=== PATIENT | male | born 1975 | race Two or more races ===

== ENCOUNTER 2018-06-27 00:20 | Inpatient (IN) | payer SELFPAY ==
[~2018-06-27] VITALS: Ht 162.6 cm; Wt 92.1 kg
--- NOTE | 2018-06-27 01:44 | PHYS DOC ---
Past Medical History Past Medical History: No Pertinent History Past Surgical History: No Surgical History Additional Information: 05/01 PPD Alcohol Use: None Drug Use: None Adult General Chief Complaint Chief Complaint: COUGH HPI HPI Patient is a 42 year old male who presents with three day history of cough. Patient states his cough started three days ago after he was outside at a [employer]ist event. In addition, he is having some sharp left sided chest pain that does not radiate as well has having left sided back pain from his hips to his neck. He denies any fevers, but has had chills. He has tried Tylenol and Aleve for pain relief with little help. His back pain and chest pain is worsened with coughing. He denies any lightheadedness or dizziness. Review of Systems Review of Systems Constitutional: Reports chills. Denies fever. Eyes: Denies change in visual acuity, redness, or eye pain [] HENT: Denies nasal congestion or sore throat [] Respiratory: Reports cough or shortness of breath [] Cardiovascular: Reports chest pain. Denies palpitations GI: Denies abdominal pain, nausea, vomiting : Denies dysuria or hematuria [] Musculoskeletal: Reports left sided back pain. Denies joint pain [] Integument: Denies rash or skin lesions [] Neurologic: Denies headache or focal weakness Complete systems were reviewed and found to be within normal limits, except as documented in this note. Current Medications Current Medications Current Medications Medications (Trade) Dose Ordered Sig/Trish Start Time Stop Time Status Last Admin Dose Admin Acetaminophen (Tylenol) 650 mg PRN Q4HRS PRN 06/27/18 03:45 06/28/18 03:44 Dexamethasone Sodium Phosphate (Decadron) 10 mg 1X ONCE 06/27/18 03:00 06/27/18 03:01 DC 06/27/18 02:46 10 MG Ibuprofen (Motrin) 600 mg 1X ONCE 06/27/18 03:00 06/27/18 03:01 DC 06/27/18 02:46 600 MG Info (CONTRAST GIVEN -- Rx MONITORING) 1 each PRN DAILY PRN 06/27/18 02:45 06/29/18 02:44 Iohexol (Omnipaque 350 Mg/ml) 100 ml 1X ONCE 06/27/18 03:00 06/27/18 03:01 DC Ondansetron HCl (Zofran) 4 mg PRN Q8HRS PRN 06/27/18 03:45 06/28/18 03:44 Piperacillin Sod/ Tazobactam Sod 4.5 gm/Sodium Chloride 100 ml @ 200 mls/hr 1X ONCE 06/27/18 04:00 06/27/18 04:29 Sodium Chloride 500 ml @ 500 mls/hr 1X ONCE 06/27/18 04:00 06/27/18 04:59 Vancomycin HCl (Vanco Per Pharmacy) 1 each PRN DAILY PRN 06/27/18 03:45 Vancomycin HCl 1.75 gm/Sodium Chloride 500 ml @ 250 mls/hr 1X ONCE 06/27/18 04:30 06/27/18 06:29 Allergies Allergies Allergies Coded Allergies Type Severity Reaction Last Updated Verified No Known Drug Allergies 06/27/18 No Physical Exam Physical Exam Constitutional: Well developed, well nourished, no acute distress HENT: Normocephalic, atraumatic Eyes: EOMI, no discharge. [] Neck: Normal range of motion, supple, no stridor. [] Cardiovascular:Heart rate regular rhythm, no murmur [] Lungs & Thorax: Bilateral breath sounds clear to auscultation [] Abdomen: Bowel sounds normal, soft, no tenderness Skin: Warm, dry, no erythema Back: Left paraspinal muscle tenderness, no CVA tenderness. [] Extremities: No clubbing, ROM intact, no edema. [] Neurologic: Alert and oriented X 3, no focal deficits noted. [] Psychologic: Affect normal, mood normal. [] Current Patient Data Vital Signs Vital Signs Date Time Temp Pulse Resp B/P (MAP) Pulse Ox O2 Delivery O2 Flow Rate FiO2 06/27/18 00:36 99.6 144 24 127/89 (102) 97 Room Air 99.6 Lab Values Laboratory Tests Test 06/27/18 02:10 06/27/18 02:30 White Blood Count 20.7 x10^3/uL (4.0-11.0) H Red Blood Count 5.16 x10^6/uL (4.30-5.70) Hemoglobin 15.6 g/dL (13.0-17.5) Hematocrit 45.8 % (39.0-53.0) Mean Corpuscular Volume 89 fL (79-100) Mean Corpuscular Hemoglobin 30 pg (25-35) Mean Corpuscular Hemoglobin Concent 34 g/dL (31-37) Red Cell Distribution Width 13.0 % (11.5-14.5) Platelet Count 164 x10^3/uL (140-400) Neutrophils (%) (Auto) 89 % (31-73) H Lymphocytes (%) (Auto) 4 % (24-48) L Monocytes (%) (Auto) 8 % (0-9) Eosinophils (%) (Auto) 0 % (0-3) Basophils (%) (Auto) 0 % (0-3) Neutrophils # (Auto) 18.4 x10^3uL (1.8-7.7) H Lymphocytes # (Auto) 0.7 x10^3/uL (1.0-4.8) L Monocytes # (Auto) 1.6 x10^3/uL (0.0-1.1) H Eosinophils # (Auto) 0.0 x10^3/uL (0.0-0.7) Basophils # (Auto) 0.0 x10^3/uL (0.0-0.2) Platelet Estimate Pending D-Dimer (Leandra) 1.48 ug/mlFEU (0.00-0.50) H Urine Collection Type Unknown Urine Color [place] Urine Clarity Cloudy Urine pH 5.0 Urine Specific [place] 1.025 Urine Protein 30 mg/dL (NEG-TRACE) Urine Glucose (UA) Negative mg/dL (NEG) Urine Ketones (Stick) Trace mg/dL (NEG) Urine Blood Negative (NEG) Urine Nitrite Negative (NEG) Urine Bilirubin Small (NEG) Urine Urobilinogen Dipstick 1.0 mg/dL (0.2 mg/dL) Urine Leukocyte Esterase Trace (NEG) Urine RBC 0 /HPF (0-2) Urine WBC 5-10 /HPF (0-4) Urine Squamous Epithelial Cells Occ /LPF Urine Amorphous Sediment Present /HPF Urine Bacteria 0 /HPF (0-FEW) Urine Hyaline Casts Many /HPF Urine Mucus Mod /LPF Sodium Level 137 mmol/L (136-145) Potassium Level 4.1 mmol/L (3.5-5.1) Chloride Level 102 mmol/L (98-107) Carbon Dioxide Level 21 mmol/L (21-32) Anion Gap 14 (6-14) Blood Urea Nitrogen 36 mg/dL (8-26) H Creatinine 2.8 mg/dL (0.7-1.3) H Estimated GFR (Cockcroft-Gault) 24.7 BUN/Creatinine Ratio 13 (6-20) Glucose Level 132 mg/dL (70-99) H Lactic Acid Level 3.0 mmol/L (0.4-2.0) H Calcium Level 9.2 mg/dL (8.5-10.1) Magnesium Level 1.9 mg/dL (1.8-2.4) Total Bilirubin 0.8 mg/dL (0.2-1.0) Aspartate Amino Transferase (AST) 12 U/L (15-37) L Alanine Aminotransferase (ALT) 25 U/L (16-63) Alkaline Phosphatase 78 U/L (46-116) Creatine Kinase 74 U/L (39-308) Creatine Kinase MB (Mass) 0.5 ng/mL (0.0-3.6) Creatine Kinase MB Relative Index % (0-4) Troponin I Quantitative < 0.017 ng/mL (0.000-0.055) MK-Wxz-S-Type Natriuretic Peptide 1398 pg/mL (0-124) H Total Protein 7.5 g/dL (6.4-8.2) Albumin 3.3 g/dL (3.4-5.0) L Albumin/Globulin Ratio 0.8 (1.0-1.7) L Influenza Type A Antigen Negative (NEGATIVE) Influenza Type B Antigen Negative (NEGATIVE) Laboratory Tests 06/27/18 02:10 Laboratory Tests 06/27/18 02:10 EKG EKG @0304 Sinus tachycardia at 130bpm, NO ST elevation, Q wave in III Radiology/Procedures Radiology/Procedures 2 view CXR (preliminary interpretation by ED physician): Left lower lobe opacity[] Course & Med Decision Making Course & Med Decision Making 42 year old male presents with cough, sob, and chest pain. Upon arrival patients heart rates was 144 bpm. Labs and imaging obtained and posted to the chart. Symptomatic treatment provided with interval improvement. Chest x-ray showed left lower lobe infiltrate. Patient elevated white count and was tachycardic SIRS criteria. This combined with chest x-ray finding patient qualifies for sepsis. Antibiotic and fluids started. Patient requiring admission for further evaluation and treatment. Discussed with Dr. Rosado who is in agreement with admission. Discussed findings and plan with patient and family, who acknowledge understanding and agreement. Dragon Disclaimer Dragon Disclaimer This electronic medical record was generated, in whole or in part, using a voice recognition dictation system. Departure Departure Impression: Primary Impression: Severe sepsis Additional Impressions: Pneumonia Acute renal insufficiency Disposition: ADMITTED INPATIENT Admitting Physician: Curry Watkins Condition: GUARDED Referrals: NO PCP (PCP) Critical Care Time Critical care time was 30 minutes which includes time at bedside, spent in di scussion of patient's care with specialists and/or family members, with interpretation of laboratory and/or radiological studies and is exclusive of procedures. Date and Time of Reassessment Date: Jun 27, 2018 Time: 03:36 Fluid Challenge Is the fluid challenge complet: No Vital Signs Vital Signs: Vital Signs Date Time Temp Pulse Resp B/P (MAP) Pulse Ox O2 Delivery O2 Flow Rate FiO2 06/27/18 00:36 99.6 144 24 127/89 (102) 97 Room Air 99.6 Temperature Source: Oral Respirations Respiratory Effort: Shortness of breath Respiratory Pattern: Normal Cardiovascular Pulse Rhythm: Irregular (tachycardia) Lung Sounds Breath Sounds: Coarse (left base) Capillary Refil Capillary Refill: Rt Hand < 3 seconds Peripheral Pulse Pulse Location: Radial Pulse Strength: Normal (2+) Pulse Assessment Method: NIBP Integumentary Skin: Dry, Other (hot) Skin Moisture: Dry Skin Turgor: Normal Skin Color: warm, dry Problem Qualifiers Additional Impressions: Pneumonia Pneumonia type: due to unspecified organism Laterality: left Lung location: lower lobe of lung Qualified Codes: J18.1 - Lobar pneumonia, unspecified organism ERNESTO OVIEDO DO Jun 27, 2018 01:44
[2018-06-27 02:24] LABS: BASO % 0 % (0-3); EOS % 0 % (0-3); HEMATOCRIT 45.8 % (39.0-53.0); HEMOGLOBIN 15.6 g/dL (13.0-17.5); LYMPH # 0.7 x10^3/uL (1.0-4.8); LYMPH % 4 % (24-48); MEAN CORPUSCULAR HEMOGLOBIN 30 pg (25-35); MEAN CORPUSCULAR HGB CONC 34 g/dL (31-37); MEAN CORPUSCULAR VOLUME 89 fL (79-100); MONO # 1.6 x10^3/uL (0.0-1.1); MONO % 8 % (0-9); NEUT # 18.4 x10^3uL (1.8-7.7); NEUT % 89 % (31-73); PLATELET COUNT 164 x10^3/uL (140-400); RED BLOOD COUNT 5.16 x10^6/uL (4.30-5.70); WHITE BLOOD COUNT 20.7 x10^3/uL (4.0-11.0)
[2018-06-27 02:26] LABS: BILIRUBIN,URINE SMALL (NEG); CLARITY,URINE CLOUDY; COLOR,URINE AMBER; NITRITE,URINE NEGATIVE (NEG); PROTEIN,URINE 30 mg/dL (NEG-TRACE)
[2018-06-27 02:36] LABS: BACTERIA,URINE 0 /HPF (0-FEW); RBC,URINE 0 /HPF (0-2)
[2018-06-27 02:37] LABS: AMORPHOUS SEDIMENT,UR PRESENT /HPF; HYALINE CASTS, URINE MANY /HPF; SQUAMOUS EPITHELIAL CELL,UR OCC /LPF
[2018-06-27 02:40] LABS: CALCIUM 9.2 mg/dL (8.5-10.1); CREATININE 2.8 mg/dL (0.7-1.3); GFR 24.7; POTASSIUM 4.1 mmol/L (3.5-5.1)
[2018-06-27] MEDS ORDERED: CONTRAST GIVEN. MC PRN (02:45)
[2018-06-27 02:46] LABS: ALBUMIN 3.3 g/dL (3.4-5.0); ALBUMIN/GLOBULIN RATIO 0.8 (1.0-1.7); MAGNESIUM 1.9 mg/dL (1.8-2.4); TOTAL BILIRUBIN 0.8 mg/dL (0.2-1.0); TOTAL PROTEIN 7.5 g/dL (6.4-8.2)
[2018-06-27 02:52] LABS: INFLUENZA A PATIENT NEGATIVE (NEGATIVE); INFLUENZA B PATIENT NEGATIVE (NEGATIVE)
[2018-06-27 02:56] LABS: CREATINE KINASE 74 U/L (39-308)
[2018-06-27] MEDS ORDERED: IOHEXOL 350 MG/ML 100 ML VIAL. IV ONE (03:00)
[2018-06-27] MEDS ORDERED: DEXAMETHASONE SOD PHOS 4 MG/ML VIAL IV ONE (03:00)
[2018-06-27] MEDS ORDERED: IBUPROFEN 200 MG TABLET. PO ONE (03:00)
[2018-06-27] MEDS ORDERED: IV NORMAL SALINE 1000ML BAG 1,000 ML IV ONE ×6 (03:00→23:00)
--- NOTE | 2018-06-27 03:41 | RAD ---
CHEST PA LATERAL CLINICAL INDICATION: COUGH COMPARISON: None FINDINGS: Heart is normal in size. Consolidation is seen in the anterior basal segment of the left lower lobe. Right lung is clear. No pneumothorax or large pleural effusion. Visualized bony thorax is within normal limits. IMPRESSION: Left lower lobe pneumonia. Follow-up imaging recommended after medical therapy to ensure resolution. Electronically signed by: Abel Treadwell DO (06/27/2018 3:39 AM) [id number]
[2018-06-27] MEDS ORDERED: ONDANSETRON PF 4 MG/2 ML VIAL. IV PRN (03:45)
[2018-06-27] MEDS ORDERED: VANCOMYCIN PER PHARMACY MC PRN (03:45)
[2018-06-27] MEDS ORDERED: ACETAMINOPHEN 325 MG TABLET. PO PRN (03:45)
[2018-06-27] MEDS ORDERED: PIPERACILLIN/TAZOBACTAM 4.5 GM in IV NORMAL SALINE 100ML 100 ML IV ONE (04:00)
[2018-06-27] MEDS ORDERED: IV NORMAL SALINE 500ML BAG 500 ML IV ONE (04:00)
[2018-06-27] MEDS ORDERED: VANCOMYCIN 1.75 GM in IV NORMAL SALINE 500ML BAG 500 ML IV ONE (04:30)
[2018-06-27 04:36] LABS: % BANDS 35 % (0-9); % LYMPHS 2 % (24-48); % METAS 6 % (0-0); % MONOS 6 % (0-10); % MYELOS 1 % (0-0); % SEGS 50 % (35-66)
[2018-06-27 04:37] LABS: PLT ESTIMATE ADEQUATE (ADEQUATE); TOXIC GRANULATION SLIGHT
[2018-06-27 04:48] VITALS: BP 127/76
--- NOTE | 2018-06-27 05:50 | NUR ---
Pharmacy Vancomycin Dosing Note S:Consulted to monitor and dose vancomycin started 06/27/18. O:SHEY FINNEGAN is a 42 year old M with Sepsis Pneumonia . Height: 5 feet, 4 inches Weight: 85.256431 kg [place] Body Weight: 59.20 Adjusted Body Weight: 69.88 Dosing Weight: Actual Other Antibiotics: ZOSYN X1, CHECK TO CONTINUE LABS: Last BUN: 36 Last Creatinine: 2.8 Creatinine Clearance: 33 mL/min Last WBC: 20.7 Last Procalcitonin: Tmax (past 24 hours): Microbiology: I/O: Drug Levels: Last level: on at Last dose given 06/27/18 at 0400 Vancomycin Dosing: Loading Dose: 1750 mg x1 Dosing Weight: Actual Target Trough: 15-20 A: Based on: WT AND CRCL P: 1. Begin Vancomycin 1250 mg IV q24h 2. Follow up Trough level on 06/29/18 at 0330 3. Pharmacy will continue to monitor, follow and adjust therapy as needed. CHAYA KAM RPH, 06/27/18 0550 Signed: 06/27/18 at 0550 by CHAYA KAM RPH PHA
[2018-06-27 07:00] VITALS: BP 113/72
--- NOTE | 2018-06-27 07:37 | EKG ---
[facility] [address] [place] [address] Test Date: 2018-06-27 Test Time: 03:04:38 Pat Name: SHEY FINNEGAN Department: Room: [facility] [place] Gender: M Director Of Curriculum And Instruction: : 1975 Requested By: ERNESTO OVIEDO Order Number: [id number] Reading MD: Jeffry Lane Measurements Intervals [place] Rate: 130 P: 2 OR: 130 QRS: 16 QRSD: 90 T: 80 QT: 282 QTc: 421 Interpretive Statements SINUS TACHYCARDIA NO SPECIFIC ECG ABNORMALITIES RI6.01 No previous ECG available for comparison Electronically Signed On 06-30-2018 9:39:[address]
[2018-06-27] MEDS: IV NORMAL SALINE 1000ML BAG 1,000 ML IV SCH ×2 (09:00→21:15)
--- NOTE | 2018-06-27 09:22 | PDOC1 ---
History and Physical Date of Admission Date of Admission DATE: 06/27/18 TIME: 09:12 Identification/Chief Complaint Chief Complaint cough, chest pain Source Source: Chart review, Patient History of Present Illness History of Present Illness Mr. Chu, is a 42 year old male admit from ER with chest pain and cough. 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 He started coughing three days ago after he was outside at a [employer] event. And left sided chest pain with the cough, he feels better this AM, but HR is still 120 chest pain not better with tylenol Past Medical History Cardiovascular: No pertinent hx Pulmonary: No pertinent hx GI: No pertinent hx Heme/Onc: No pertinent hx Hepatobiliary: No pertinent hx Psych: No pertinent hx Musculoskeletal: Osteoarthritis Rheumatologic: No pertinent hx Social History Smoke: No ALCOHOL: rare Drugs: None Current Problem List Problem List Problems Medical Problems: (1) Acute renal insufficiency Status: Acute (2) Pneumonia Status: Acute (3) Severe sepsis Status: Acute Current Medications Current Medications Current Medications Sodium Chloride 1,000 ml @ 1,000 mls/hr 1X ONCE IV Last administered on 06/27/18at 02:47; Start 06/27/18 at 03:00; Stop 06/27/18 at 03:59; Status DC Ibuprofen (Motrin) 600 mg 1X ONCE PO Last administered on 06/27/18at 02:46; Start 06/27/18 at 03:00; Stop 06/27/18 at 03:01; Status DC Dexamethasone Sodium Phosphate (Decadron) 10 mg 1X ONCE IV Last administered on 06/27/18at 02:46; Start 06/27/18 at 03:00; Stop 06/27/18 at 03:01; Status DC Sodium Chloride 1,000 ml @ 1,000 mls/hr 1X ONCE IV Last administered on 06/27/18at 02:47; Start 06/27/18 at 03:00; Stop 06/27/18 at 03:59; Status DC Iohexol (Omnipaque 350 Mg/ml) 100 ml 1X ONCE IV ; Start 06/27/18 at 03:00; Stop 06/27/18 at 03:01; Status DC Info (CONTRAST GIVEN -- Rx MONITORING) 1 each PRN DAILY PRN MC SEE COMMENTS; Start 06/27/18 at 02:45; Stop 06/29/18 at 02:44 Piperacillin Sod/ Tazobactam Sod 4.5 gm/Sodium Chloride 100 ml @ 200 mls/hr 1X ONCE IV Last administered on 06/27/18at 03:57; Start 06/27/18 at 04:00; Stop 06/27/18 at 04:29; Status DC Vancomycin HCl 1.75 gm/Sodium Chloride 500 ml @ 250 mls/hr 1X ONCE IV Last administered on 06/27/18at 03:58; Start 06/27/18 at 04:30; Stop 06/27/18 at 06:29; Status DC Sodium Chloride 500 ml @ 500 mls/hr 1X ONCE IV Last administered on 06/27/18at 03:57; Start 06/27/18 at 04:00; Stop 06/27/18 at 04:59; Status DC Vancomycin HCl (Vanco Per Pharmacy) 1 each PRN DAILY PRN MC SEE COMMENTS Last administered on 06/27/18at 05:50; Start 06/27/18 at 03:45 Ondansetron HCl (Zofran) 4 mg PRN Q8HRS PRN IV NAUSEA/VOMITING 1ST CHOICE; Start 06/27/18 at 03:45; Stop 06/28/18 at 03:44 Acetaminophen (Tylenol) 650 mg PRN Q4HRS PRN PO FEVER; Start 06/27/18 at 03:45; Stop 06/28/18 at 03:44 Vancomycin HCl 1.25 gm/Sodium Chloride 250 ml @ 167 mls/hr Q24H IV ; Start 06/28/18 at 04:00 Vancomycin HCl (Vancomycin Trough Level) 1 each 1X ONCE MC ; Start 06/29/18 at 03:30; Stop 06/29/18 at 03:31 Albuterol/ Ipratropium (Duoneb) 3 ml RTQID NEB ; Start 06/27/18 at 08:00 Guaifenesin (Robitussin Dm) 10 ml PRN Q4HRS PRN PO COUGH; Start 06/27/18 at 07:30 Sodium Chloride 1,000 ml @ 100 mls/hr Q10H IV ; Start 06/27/18 at 09:00 Active Scripts Active No Active Prescriptions or Reported Medications Allergies Allergies: Coded Allergies: No Known Drug Allergies (Unverified , 06/27/18) ROS General: YES: Chills, Fatigue PSYCHOLOGICAL ROS: No: Anxiety, Behavioral Disorder, Concentration difficultie, Decreased libido, Depression, Disorientation, Hallucinations, Hostility, Irritablity, Memory difficulties, Mood Swings, Obsessive thoughts, Physical abuse, Sexual abuse, Sleep disturbances, Suicidal ideation, Other Eyes: No Blurry vision, No Decreased vision, No Double vision, No Dry eyes, No Excessive tearing, No Eye Pain, No Itchy Eyes, No Loss of vision, No Photophobia, No Scotomata, No Uses contacts, No Uses glasses, No Other Respiratory: YES: Cough, Pleuritic Pain, SOB with excertion, Sputum Changes, Tachypnea; No: Hemoptysis, Orthopnea, Shortness of breath, Stridor, Wheezing, Other Cardiovascular: yes Chest Pain; No Palpitations, No Orthopnea, No Paroxysmal Noc. Dyspnea, No Edema, No Lt Headedness, No Other Gastrointestinal: No Nausea, No Vomiting, No Abdominal Pain, No Diarrhea, No Constipation, No Melena, No Hematochezia, No Other Genitourinary: No Dysuria, No Frequency, No Incontinence, No Hematuria, No Retention, No Discharge, No Urgency, No Pain, No Flank Pain, No Other, No , No , No , No , No , No , No Musculoskeletal: Yes Joint Pain, Yes Joint Stiffness; No Gait Disturbance, No Joint Swelling, No Muscle Pain, No Muscular Weakness, No Pain In:, No Swelling In:, No Other Neurological: No Behavorial Changes, No Bowel/Bladder ControlChng, No Confusion, No Dizziness, No Gait Disturbance, No Headaches, No Impaired Coord/balance, No Memory Loss, No Numbness/Tingling, No Seizures, No Speech Problems, No Tremors, No Visual Changes, No Weakness, No Other Skin: No Dry Skin, No Eczema, No Hair Changes, No Lumps, No Mole Changes, No Mottling, No Nail Changes, No Pruritus, No Rash, No Skin Lesion Changes, No Other, No Acne Physical Exam General: Alert, Oriented X3, Cooperative, mild distress HEENT: Atraumatic Lungs: Normal air movement, Other (left rales, no wheeze, ) Heart: S1S2, no murmurs Abdomen: Normal bowel sounds (obese), Soft Extremities: No clubbing, No edema Skin: No rashes, No significant lesion Neuro: Normal speech, Sensation intact, Cranial nerves 3-12 NL Psych/Mental Status: Mood NL Vitals Vitals Vital Signs Date Time Temp Pulse Resp B/P (MAP) Pulse Ox O2 Delivery O2 Flow Rate FiO2 06/27/18 07:00 97.5 94 22 113/72 (86) 97 Room Air 97.5 Labs Labs Laboratory Tests Test 06/27/18 02:10 06/27/18 02:30 06/27/18 05:16 White Blood Count 20.7 x10^3/uL (4.0-11.0) Red Blood Count 5.16 x10^6/uL (4.30-5.70) Hemoglobin 15.6 g/dL (13.0-17.5) Hematocrit 45.8 % (39.0-53.0) Mean Corpuscular Volume 89 fL (79-100) Mean Corpuscular Hemoglobin 30 pg (25-35) Mean Corpuscular Hemoglobin Concent 34 g/dL (31-37) Red Cell Distribution Width 13.0 % (11.5-14.5) Platelet Count 164 x10^3/uL (140-400) Neutrophils (%) (Auto) 89 % (31-73) Lymphocytes (%) (Auto) 4 % (24-48) Monocytes (%) (Auto) 8 % (0-9) Eosinophils (%) (Auto) 0 % (0-3) Basophils (%) (Auto) 0 % (0-3) Neutrophils # (Auto) 18.4 x10^3uL (1.8-7.7) Lymphocytes # (Auto) 0.7 x10^3/uL (1.0-4.8) Monocytes # (Auto) 1.6 x10^3/uL (0.0-1.1) Eosinophils # (Auto) 0.0 x10^3/uL (0.0-0.7) Basophils # (Auto) 0.0 x10^3/uL (0.0-0.2) Segmented Neutrophils % 50 % (35-66) Band Neutrophils % 35 % (0-9) Lymphocytes % 2 % (24-48) Monocytes % 6 % (0-10) Metamyelocytes % 6 % (0-0) Myelocytes % 1 % (0-0) Toxic Granulation Slight Platelet Estimate Adequate (ADEQUATE) D-Dimer (Leandra) 1.48 ug/mlFEU (0.00-0.50) Urine Collection Type Unknown Urine Color [place] Urine Clarity Cloudy Urine pH 5.0 Urine Specific [place] 1.025 Urine Protein 30 mg/dL (NEG-TRACE) Urine Glucose (UA) Negative mg/dL (NEG) Urine Ketones (Stick) Trace mg/dL (NEG) Urine Blood Negative (NEG) Urine Nitrite Negative (NEG) Urine Bilirubin Small (NEG) Urine Urobilinogen Dipstick 1.0 mg/dL (0.2 mg/dL) Urine Leukocyte Esterase Trace (NEG) Urine RBC 0 /HPF (0-2) Urine WBC 5-10 /HPF (0-4) Urine Squamous Epithelial Cells Occ /LPF Urine Amorphous Sediment Present /HPF Urine Bacteria 0 /HPF (0-FEW) Urine Hyaline Casts Many /HPF Urine Mucus Mod /LPF Sodium Level 137 mmol/L (136-145) Potassium Level 4.1 mmol/L (3.5-5.1) Chloride Level 102 mmol/L (98-107) Carbon Dioxide Level 21 mmol/L (21-32) Anion Gap 14 (6-14) Blood Urea Nitrogen 36 mg/dL (8-26) Creatinine 2.8 mg/dL (0.7-1.3) Estimated GFR (Cockcroft-Gault) 24.7 BUN/Creatinine Ratio 13 (6-20) Glucose Level 132 mg/dL (70-99) Lactic Acid Level 3.0 mmol/L (0.4-2.0) 2.5 mmol/L (0.4-2.0) Calcium Level 9.2 mg/dL (8.5-10.1) Magnesium Level 1.9 mg/dL (1.8-2.4) Total Bilirubin 0.8 mg/dL (0.2-1.0) Aspartate Amino Transf (AST/SGOT) 12 U/L (15-37) Alanine Aminotransferase (ALT/SGPT) 25 U/L (16-63) Alkaline Phosphatase 78 U/L (46-116) Creatine Kinase 74 U/L (39-308) Creatine Kinase MB (Mass) 0.5 ng/mL (0.0-3.6) Creatine Kinase MB Relative Index % (0-4) Troponin I Quantitative < 0.017 ng/mL (0.000-0.055) < 0.017 ng/mL (0.000-0.055) OC-Tbz-F-Type Natriuretic Peptide 1398 pg/mL (0-124) Total Protein 7.5 g/dL (6.4-8.2) Albumin 3.3 g/dL (3.4-5.0) Albumin/Globulin Ratio 0.8 (1.0-1.7) Influenza Type A Antigen Negative (NEGATIVE) Influenza Type B Antigen Negative (NEGATIVE) Laboratory Tests Test 06/27/18 02:10 06/27/18 02:30 06/27/18 05:16 White Blood Count 20.7 x10^3/uL (4.0-11.0) Red Blood Count 5.16 x10^6/uL (4.30-5.70) Hemoglobin 15.6 g/dL (13.0-17.5) Hematocrit 45.8 % (39.0-53.0) Mean Corpuscular Volume 89 fL (79-100) Mean Corpuscular Hemoglobin 30 pg (25-35) Mean Corpuscular Hemoglobin Concent 34 g/dL (31-37) Red Cell Distribution Width 13.0 % (11.5-14.5) Platelet Count 164 x10^3/uL (140-400) Neutrophils (%) (Auto) 89 % (31-73) Lymphocytes (%) (Auto) 4 % (24-48) Monocytes (%) (Auto) 8 % (0-9) Eosinophils (%) (Auto) 0 % (0-3) Basophils (%) (Auto) 0 % (0-3) Neutrophils # (Auto) 18.4 x10^3uL (1.8-7.7) Lymphocytes # (Auto) 0.7 x10^3/uL (1.0-4.8) Monocytes # (Auto) 1.6 x10^3/uL (0.0-1.1) Eosinophils # (Auto) 0.0 x10^3/uL (0.0-0.7) Basophils # (Auto) 0.0 x10^3/uL (0.0-0.2) Segmented Neutrophils % 50 % (35-66) Band Neutrophils % 35 % (0-9) Lymphocytes % 2 % (24-48) Monocytes % 6 % (0-10) Metamyelocytes % 6 % (0-0) Myelocytes % 1 % (0-0) Toxic Granulation Slight Platelet Estimate Adequate (ADEQUATE) D-Dimer (Leandra) 1.48 ug/mlFEU (0.00-0.50) Urine Collection Type Unknown Urine Color [place] Urine Clarity Cloudy Urine pH 5.0 Urine Specific [place] 1.025 Urine Protein 30 mg/dL (NEG-TRACE) Urine Glucose (UA) Negative mg/dL (NEG) Urine Ketones (Stick) Trace mg/dL (NEG) Urine Blood Negative (NEG) Urine Nitrite Negative (NEG) Urine Bilirubin Small (NEG) Urine Urobilinogen Dipstick 1.0 mg/dL (0.2 mg/dL) Urine Leukocyte Esterase Trace (NEG) Urine RBC 0 /HPF (0-2) Urine WBC 5-10 /HPF (0-4) Urine Squamous Epithelial Cells Occ /LPF Urine Amorphous Sediment Present /HPF Urine Bacteria 0 /HPF (0-FEW) Urine Hyaline Casts Many /HPF Urine Mucus Mod /LPF Sodium Level 137 mmol/L (136-145) Potassium Level 4.1 mmol/L (3.5-5.1) Chloride Level 102 mmol/L (98-107) Carbon Dioxide Level 21 mmol/L (21-32) Anion Gap 14 (6-14) Blood Urea Nitrogen 36 mg/dL (8-26) Creatinine 2.8 mg/dL (0.7-1.3) Estimated GFR (Cockcroft-Gault) 24.7 BUN/Creatinine Ratio 13 (6-20) Glucose Level 132 mg/dL (70-99) Lactic Acid Level 3.0 mmol/L (0.4-2.0) 2.5 mmol/L (0.4-2.0) Calcium Level 9.2 mg/dL (8.5-10.1) Magnesium Level 1.9 mg/dL (1.8-2.4) Total Bilirubin 0.8 mg/dL (0.2-1.0) Aspartate Amino Transf (AST/SGOT) 12 U/L (15-37) Alanine Aminotransferase (ALT/SGPT) 25 U/L (16-63) Alkaline Phosphatase 78 U/L (46-116) Creatine Kinase 74 U/L (39-308) Creatine Kinase MB (Mass) 0.5 ng/mL (0.0-3.6) Creatine Kinase MB Relative Index % (0-4) Troponin I Quantitative < 0.017 ng/mL (0.000-0.055) < 0.017 ng/mL (0.000-0.055) SH-Fgl-C-Type Natriuretic Peptide 1398 pg/mL (0-124) Total Protein 7.5 g/dL (6.4-8.2) Albumin 3.3 g/dL (3.4-5.0) Albumin/Globulin Ratio 0.8 (1.0-1.7) Influenza Type A Antigen Negative (NEGATIVE) Influenza Type B Antigen Negative (NEGATIVE) VTE Prophylaxis Ordered VTE Prophylaxis Devices: No VTE Pharmacological Prophylaxi: Yes Assessment/Plan Assessment/Plan pneumonia sepsis acute renal failure, NS boluses, cont 100/hr, renal US, UA had sediment, consult renal, poss ATN obese BMI 32 admit GIOVANA BARRIGA MD Jun 27, 2018 09:22
[2018-06-27] MEDS ORDERED: DOXYCYCLINE HYCLATE 100 MG TABLET PO ONE (09:30)
[2018-06-27] MEDS ORDERED: guaiFENesin/CODEINE 100mg/10mg 5 ML LIQUID PO ONE (09:30)
[2018-06-27] MEDS: ENOXAPARIN 40 MG/0.4 ML SYRINGE. SQ SCH (10:00)
[2018-06-27 11:00] VITALS: BP 114/64
[2018-06-27] MEDS: IPRATRPIUM/ALBUTEROL 0.5/2.5MG 3 ML NEBU. NEB SCH ×3 (12:00→20:19)
[2018-06-27] MEDS: cefTRIAXone IV Push 1 GM VIAL. IVP SCH (12:30)
--- NOTE | 2018-06-27 12:40 | PDOC2 ---
CONSULT Date of Consult Date of Consult DATE: 06/27/18 TIME: 12:34 Reason for Consult Reason for Consult: Renal failure Identification/Chief Complaint Chief Complaint Cough , Pain in Lt side of Lower chest/Abdomen- thinks due to Cough ing Source Source: Chart review, Patient History of Present Illness Reason for Visit: Mr. Chu, is a 42 year old male admit from ER with chest pain and cough , going on for 3 days, since he used ammonia on a paint project at work C/o left sided chest pain with the cough,He has never seen a Doctor, doesnt have PCP Denies any Urinary complaints, No N/V/D. No SOB . Denies NSAID use , No other OTC supplements . Denies any Hx of Nephrolithiasiis, No FHX of renal problems Used to do cocaine > 10 yrs back , No Recreational drug Currently, Occ ETOH - beer . No Hx of Nose bleed, Gross hematuria. Not on any meds , Occ Tylenol Past Medical History Cardiovascular: No pertinent hx Pulmonary: No pertinent hx GI: No pertinent hx Heme/Onc: No pertinent hx Hepatobiliary: No pertinent hx Psych: No pertinent hx Musculoskeletal: Osteoarthritis Rheumatologic: No pertinent hx Social History No ALCOHOL: rare Drugs: None Current Problem List Problem List Problems Medical Problems: (1) Acute renal insufficiency Status: Acute (2) Pneumonia Status: Acute (3) Severe sepsis Status: Acute Current Medications Current Medications Current Medications Sodium Chloride 1,000 ml @ 1,000 mls/hr 1X ONCE IV Last administered on 06/27/18at 02:47; Start 06/27/18 at 03:00; Stop 06/27/18 at 03:59; Status DC Ibuprofen (Motrin) 600 mg 1X ONCE PO Last administered on 06/27/18at 02:46; Start 06/27/18 at 03:00; Stop 06/27/18 at 03:01; Status DC Dexamethasone Sodium Phosphate (Decadron) 10 mg 1X ONCE IV Last administered on 06/27/18at 02:46; Start 06/27/18 at 03:00; Stop 06/27/18 at 03:01; Status DC Sodium Chloride 1,000 ml @ 1,000 mls/hr 1X ONCE IV Last administered on 06/27/18at 02:47; Start 06/27/18 at 03:00; Stop 06/27/18 at 03:59; Status DC Iohexol (Omnipaque 350 Mg/ml) 100 ml 1X ONCE IV ; Start 06/27/18 at 03:00; Stop 06/27/18 at 03:01; Status DC Info (CONTRAST GIVEN -- Rx MONITORING) 1 each PRN DAILY PRN MC SEE COMMENTS; Start 06/27/18 at 02:45; Stop 06/29/18 at 02:44 Piperacillin Sod/ Tazobactam Sod 4.5 gm/Sodium Chloride 100 ml @ 200 mls/hr 1X ONCE IV Last administered on 06/27/18at 03:57; Start 06/27/18 at 04:00; Stop 06/27/18 at 09:21; Status DC Vancomycin HCl 1.75 gm/Sodium Chloride 500 ml @ 250 mls/hr 1X ONCE IV Last administered on 06/27/18at 03:58; Start 06/27/18 at 04:30; Stop 06/27/18 at 09:22; Status DC Sodium Chloride 500 ml @ 500 mls/hr 1X ONCE IV Last administered on 06/27/18at 03:57; Start 06/27/18 at 04:00; Stop 06/27/18 at 04:59; Status DC Vancomycin HCl (Vanco Per Pharmacy) 1 each PRN DAILY PRN MC SEE COMMENTS Last administered on 06/27/18at 05:50; Start 06/27/18 at 03:45; Stop 06/27/18 at 09:22; Status DC Ondansetron HCl (Zofran) 4 mg PRN Q8HRS PRN IV NAUSEA/VOMITING 1ST CHOICE; Start 06/27/18 at 03:45; Stop 06/28/18 at 03:44 Acetaminophen (Tylenol) 650 mg PRN Q4HRS PRN PO FEVER; Start 06/27/18 at 03:45; Stop 06/28/18 at 03:44 Vancomycin HCl 1.25 gm/Sodium Chloride 250 ml @ 167 mls/hr Q24H IV ; Start 06/28/18 at 04:00; Stop 06/28/18 at 04:00; Status DC Vancomycin HCl (Vancomycin Trough Level) 1 each 1X ONCE MC ; Start 06/29/18 at 03:30; Stop 06/29/18 at 03:30; Status DC Albuterol/ Ipratropium (Duoneb) 3 ml RTQID NEB ; Start 06/27/18 at 08:00 Guaifenesin (Robitussin Dm) 10 ml PRN Q4HRS PRN PO COUGH; Start 06/27/18 at 07:30 Sodium Chloride 1,000 ml @ 100 mls/hr Q10H IV ; Start 06/27/18 at 09:00 Guaifenesin/ Codeine Phosphate (Robitussin Ac) 10 ml 1X ONCE PO Last admi nistered on 06/27/18at 10:45; Start 06/27/18 at 09:30; Stop 06/27/18 at 09:31; Status DC Sodium Chloride 1,000 ml @ 1,000 mls/hr 1X ONCE IV Last administered on 06/27/18at 10:30; Start 06/27/18 at 09:30; Stop 06/27/18 at 10:34; Status DC Enoxaparin Sodium (Lovenox Per Pharmacy Prophylaxis Dosing) 1 each PRN DAILY PRN MC SEE COMMENTS; Start 06/27/18 at 09:30 Ceftriaxone Sodium (Rocephin) 1 gm Q24H IVP ; Start 06/27/18 at 09:30 Doxycycline Hyclate (Vibra-Tab) 100 mg BID PO ; Start 06/27/18 at 21:00 Doxycycline Hyclate (Vibra-Tab) 100 mg 1X ONCE PO Last administered on 06/27/18at 10:45; Start 06/27/18 at 09:30; Stop 06/27/18 at 09:31; Status DC Enoxaparin Sodium (Lovenox 40mg Syringe) 40 mg Q24H SQ Last administered on 06/27/18at 10:00; Start 06/27/18 at 10:00 Active Scripts Active No Active Prescriptions or Reported Medications Allergies Allergies: Coded Allergies: No Known Drug Allergies (Unverified , 06/27/18) ROS Review of System As per HPI Physical Exam Physical Exam GEN: NAD HEEN: Om moist NECK: Supple CVS: Tachy cardiac, Reg Rhythm RESP: CTA , Non labored GI: BS + ve, NO Bruit, Non Tender, Non Distended : [No CVA tenderness, No Suprapubic Tenderness, No Henley neuro- Grossly normal Skin- No rash, lesions EXT- No edema Vital Signs Vital Signs Date Time Temp Pulse Resp B/P (MAP) Pulse Ox O2 Delivery O2 Flow Rate FiO2 4/30/19 11:00 98.0 122 22 114/64 (81) 94 Room Air 98.0 Assessment & Plan JOSE - Etiology ?ATN No significant medical Hx IVF, ordered UA, Renal US strict I/O , Monitor Cough /pneumonia/sepsis Per primary Discussed with Patient Labs Labs Laboratory Tests Test 06/27/18 02:10 06/27/18 02:30 06/27/18 05:16 06/27/18 08:50 White Blood Count 20.7 x10^3/uL (4.0-11.0) Red Blood Count 5.16 x10^6/uL (4.30-5.70) Hemoglobin 15.6 g/dL (13.0-17.5) Hematocrit 45.8 % (39.0-53.0) Mean Corpuscular Volume 89 fL (79-100) Mean Corpuscular Hemoglobin 30 pg (25-35) Mean Corpuscular Hemoglobin Concent 34 g/dL (31-37) Red Cell Distribution Width 13.0 % (11.5-14.5) Platelet Count 164 x10^3/uL (140-400) Neutrophils (%) (Auto) 89 % (31-73) Lymphocytes (%) (Auto) 4 % (24-48) Monocytes (%) (Auto) 8 % (0-9) Eosinophils (%) (Auto) 0 % (0-3) Basophils (%) (Auto) 0 % (0-3) Neutrophils # (Auto) 18.4 x10^3uL (1.8-7.7) Lymphocytes # (Auto) 0.7 x10^3/uL (1.0-4.8) Monocytes # (Auto) 1.6 x10^3/uL (0.0-1.1) Eosinophils # (Auto) 0.0 x10^3/uL (0.0-0.7) Basophils # (Auto) 0.0 x10^3/uL (0.0-0.2) Segmented Neutrophils % 50 % (35-66) Band Neutrophils % 35 % (0-9) Lymphocytes % 2 % (24-48) Monocytes % 6 % (0-10) Metamyelocytes % 6 % (0-0) Myelocytes % 1 % (0-0) Toxic Granulation Slight Platelet Estimate Adequate (ADEQUATE) D-Dimer (Leandra) 1.48 ug/mlFEU (0.00-0.50) Urine Collection Type Unknown Urine Color Jimena Urine Clarity Cloudy Urine pH 5.0 Urine Specific [place] 1.025 Urine Protein 30 mg/dL (NEG-TRACE) Urine Glucose (UA) Negative mg/dL (NEG) Urine Ketones (Stick) Trace mg/dL (NEG) Urine Blood Negative (NEG) Urine Nitrite Negative (NEG) Urine Bilirubin Small (NEG) Urine Urobilinogen Dipstick 1.0 mg/dL (0.2 mg/dL) Urine Leukocyte Esterase Trace (NEG) Urine RBC 0 /HPF (0-2) Urine WBC 5-10 /HPF (0-4) Urine Squamous Epithelial Cells Occ /LPF Urine Amorphous Sediment Present /HPF Urine Bacteria 0 /HPF (0-FEW) Urine Hyaline Casts Many /HPF Urine Mucus Mod /LPF Sodium Level 137 mmol/L (136-145) Potassium Level 4.1 mmol/L (3.5-5.1) Chloride Level 102 mmol/L (98-107) Carbon Dioxide Level 21 mmol/L (21-32) Anion Gap 14 (6-14) Blood Urea Nitrogen 36 mg/dL (8-26) Creatinine 2.8 mg/dL (0.7-1.3) Estimated GFR (Cockcroft-Gault) 24.7 BUN/Creatinine Ratio 13 (6-20) Glucose Level 132 mg/dL (70-99) Lactic Acid Level 3.0 mmol/L (0.4-2.0) 2.5 mmol/L (0.4-2.0) Calcium Level 9.2 mg/dL (8.5-10.1) Magnesium Level 1.9 mg/dL (1.8-2.4) Total Bilirubin 0.8 mg/dL (0.2-1.0) Aspartate Amino Transf (AST/SGOT) 12 U/L (15-37) Alanine Aminotransferase (ALT/SGPT) 25 U/L (16-63) Alkaline Phosphatase 78 U/L (46-116) Creatine Kinase 74 U/L (39-308) Creatine Kinase MB (Mass) 0.5 ng/mL (0.0-3.6) Creatine Kinase MB Relative Index % (0-4) Troponin I Quantitative < 0.017 ng/mL (0.000-0.055) < 0.017 ng/mL (0.000-0.055) < 0.017 ng/mL (0.000-0.055) NT-Sve-J-Type Natriuretic Peptide 1398 pg/mL (0-124) Total Protein 7.5 g/dL (6.4-8.2) Albumin 3.3 g/dL (3.4-5.0) Albumin/Globulin Ratio 0.8 (1.0-1.7) Influenza Type A Antigen Negative (NEGATIVE) Influenza Type B Antigen Negative (NEGATIVE) Laboratory Tests Test 06/27/18 02:10 06/27/18 02:30 06/27/18 05:16 06/27/18 08:50 White Blood Count 20.7 x10^3/uL (4.0-11.0) Red Blood Count 5.16 x10^6/uL (4.30-5.70) Hemoglobin 15.6 g/dL (13.0-17.5) Hematocrit 45.8 % (39.0-53.0) Mean Corpuscular Volume 89 fL (79-100) Mean Corpuscular Hemoglobin 30 pg (25-35) Mean Corpuscular Hemoglobin Concent 34 g/dL (31-37) Red Cell Distribution Width 13.0 % (11.5-14.5) Platelet Count 164 x10^3/uL (140-400) Neutrophils (%) (Auto) 89 % (31-73) Lymphocytes (%) (Auto) 4 % (24-48) Monocytes (%) (Auto) 8 % (0-9) Eosinophils (%) (Auto) 0 % (0-3) Basophils (%) (Auto) 0 % (0-3) Neutrophils # (Auto) 18.4 x10^3uL (1.8-7.7) Lymphocytes # (Auto) 0.7 x10^3/uL (1.0-4.8) Monocytes # (Auto) 1.6 x10^3/uL (0.0-1.1) Eosinophils # (Auto) 0.0 x10^3/uL (0.0-0.7) Basophils # (Auto) 0.0 x10^3/uL (0.0-0.2) Segmented Neutrophils % 50 % (35-66) Band Neutrophils % 35 % (0-9) Lymphocytes % 2 % (24-48) Monocytes % 6 % (0-10) Metamyelocytes % 6 % (0-0) Myelocytes % 1 % (0-0) Toxic Granulation Slight Platelet Estimate Adequate (ADEQUATE) D-Dimer (Leandra) 1.48 ug/mlFEU (0.00-0.50) Urine Collection Type Unknown Urine Color Jimena Urine Clarity Cloudy Urine pH 5.0 Urine Specific [place] 1.025 Urine Protein 30 mg/dL (NEG-TRACE) Urine Glucose (UA) Negative mg/dL (NEG) Urine Ketones (Stick) Trace mg/dL (NEG) Urine Blood Negative (NEG) Urine Nitrite Negative (NEG) Urine Bilirubin Small (NEG) Urine Urobilinogen Dipstick 1.0 mg/dL (0.2 mg/dL) Urine Leukocyte Esterase Trace (NEG) Urine RBC 0 /HPF (0-2) Urine WBC 5-10 /HPF (0-4) Urine Squamous Epithelial Cells Occ /LPF Urine Amorphous Sediment Present /HPF Urine Bacteria 0 /HPF (0-FEW) Urine Hyaline Casts Many /HPF Urine Mucus Mod /LPF Sodium Level 137 mmol/L (136-145) Potassium Level 4.1 mmol/L (3.5-5.1) Chloride Level 102 mmol/L (98-107) Carbon Dioxide Level 21 mmol/L (21-32) Anion Gap 14 (6-14) Blood Urea Nitrogen 36 mg/dL (8-26) Creatinine 2.8 mg/dL (0.7-1.3) Estimated GFR (Cockcroft-Gault) 24.7 BUN/Creatinine Ratio 13 (6-20) Glucose Level 132 mg/dL (70-99) Lactic Acid Level 3.0 mmol/L (0.4-2.0) 2.5 mmol/L (0.4-2.0) Calcium Level 9.2 mg/dL (8.5-10.1) Magnesium Level 1.9 mg/dL (1.8-2.4) Total Bilirubin 0.8 mg/dL (0.2-1.0) Aspartate Amino Transf (AST/SGOT) 12 U/L (15-37) Alanine Aminotransferase (ALT/SGPT) 25 U/L (16-63) Alkaline Phosphatase 78 U/L (46-116) Creatine Kinase 74 U/L (39-308) Creatine Kinase MB (Mass) 0.5 ng/mL (0.0-3.6) Creatine Kinase MB Relative Index % (0-4) Troponin I Quantitative < 0.017 ng/mL (0.000-0.055) < 0.017 ng/mL (0.000-0.055) < 0.017 ng/mL (0.000-0.055) BK-Lke-M-Type Natriuretic Peptide 1398 pg/mL (0-124) Total Protein 7.5 g/dL (6.4-8.2) Albumin 3.3 g/dL (3.4-5.0) Albumin/Globulin Ratio 0.8 (1.0-1.7) Influenza Type A Antigen Negative (NEGATIVE) Influenza Type B Antigen Negative (NEGATIVE) Review All relevant outside records, renal labs, imaging studies, telemetry/EKG's were reviewed. LILIA CHAVEZ MD Jun 27, 2018 12:40
[2018-06-27 15:00] VITALS: BP 107/69
[2018-06-27 19:10] VITALS: BP 135/91
--- NOTE | 2018-06-27 19:49 | NUR ---
Downtime: Head to toe assessment done on paper in chart.
[2018-06-27] MEDS: LACTOBACILLUS RHAMNOSUS GG 1 CAPSULE. PO SCH (21:15)
[2018-06-27] MEDS: guaiFENesin DM 200MG/20MG 10 ML SYRUP PO PRN (21:15)
[2018-06-27] MEDS: DOXYCYCLINE HYCLATE 100 MG TABLET PO SCH (21:15)
[2018-06-27 23:10] VITALS: BP 127/84
[2018-06-28 03:10] VITALS: BP 134/91
[2018-06-28] MEDS ORDERED: VANCOMYCIN 1.25 GM in IV NORMAL SALINE 250ML 250 ML IV SCH (04:00)
[2018-06-28 05:15] LABS: BASO % 0 % (0-3); EOS % 0 % (0-3); HEMATOCRIT 37.3 % (39.0-53.0); HEMOGLOBIN 12.7 g/dL (13.0-17.5); LYMPH # 0.5 x10^3/uL (1.0-4.8); LYMPH % 4 % (24-48); MEAN CORPUSCULAR HEMOGLOBIN 31 pg (25-35); MEAN CORPUSCULAR HGB CONC 34 g/dL (31-37); MEAN CORPUSCULAR VOLUME 90 fL (79-100); MONO # 1.1 x10^3/uL (0.0-1.1); MONO % 8 % (0-9); NEUT # 12.7 x10^3uL (1.8-7.7); NEUT % 88 % (31-73); PLATELET COUNT 126 x10^3/uL (140-400); RED BLOOD COUNT 4.15 x10^6/uL (4.30-5.70); RED CELL DISTRIBUTION WIDTH 13.4 % (11.5-14.5); WHITE BLOOD COUNT 14.4 x10^3/uL (4.0-11.0)
[2018-06-28 05:41] LABS: ALBUMIN 2.3 g/dL (3.4-5.0); ALBUMIN/GLOBULIN RATIO 0.6 (1.0-1.7); CALCIUM 8.6 mg/dL (8.5-10.1); CREATININE 1.1 mg/dL (0.7-1.3); GFR 72.7; TOTAL BILIRUBIN 0.5 mg/dL (0.2-1.0); TOTAL PROTEIN 6.2 g/dL (6.4-8.2)
--- NOTE | 2018-06-28 05:54 | CONS ---
DATE OF CONSULTATION: 06/27/2018 ATTENDING PHYSICIAN: Dr. Thompson. REASON FOR CONSULTATION: The patient is seen in pulmonary consultation at the request of Dr. Thompson for abnormal chest x-ray. HISTORY OF PRESENT ILLNESS: The patient is a 42-year-old that has been sick at home for the last 2-3 days, presented with increasing shortness of breath, coughing up some discolored sputum, some left-sided chest discomfort, nonradiating. Denied fever, but has some chills. No hemoptysis. He does smoke. He works in construction. PAST MEDICAL AND SURGICAL HISTORY: Otherwise unremarkable. SOCIAL HISTORY: He works in construction. He does smoke. PHYSICAL EXAMINATION: VITAL SIGNS: Stable. O2 saturation greater than 92%. HEENT: Eyes, the sclerae were nonicteric. NECK: Jugular venous distention was not elevated. No lymphadenopathy. CHEST: Full expansion. LUNGS: Diminished breath sounds in the left. No wheezes. CARDIOVASCULAR: Regular rate and rhythm with S1 and S2, no S3. ABDOMEN: Soft, nontender, nondistended. EXTREMITIES: No clubbing, cyanosis or edema. NEUROLOGIC: The patient was awake, alert, following commands. A detailed neuro exam was not performed. Chest x-ray was reviewed. IMPRESSION: 1. Pneumonia, suspect Gram negative. 2. Tobacco dependence. 3. Abnormal x-ray compatible with pneumonia, difficult to tell if there is an underlying malignancy. PLAN: 1. The patient okay to discharge home on antibiotics. 2. Follow up in 8 weeks with a repeat chest x-ray. 3. The patient was given my business card. He is to call my office for followup in 8 weeks. I will schedule repeat chest x-ray. BALJIT PETERSON MD DR: ASHLEY/adri JOB#: [id number] / [id number]
[2018-06-28] MEDS: IPRATRPIUM/ALBUTEROL 0.5/2.5MG 3 ML NEBU. NEB SCH ×4 (06:16→20:00)
[2018-06-28 07:20] VITALS: BP 129/91
--- NOTE | 2018-06-28 07:57 | RAD ---
Renal ultrasound, 06/27/2018: HISTORY: Acute renal failure The right kidney measures 12.1 cm in length while the left kidney measures 12.8 cm. There is no evidence of hydronephrosis or a renal mass. No abnormal perinephric process is seen. Limited views of urinary bladder show no abnormality. IMPRESSION: No significant renal abnormality is detected. Electronically signed by: Woo Salazar MD (06/28/2018 7:54 AM) [facility]
[2018-06-28] MEDS: IV NORMAL SALINE 1000ML BAG 1,000 ML IV SCH ×3 (09:38→23:25)
[2018-06-28] MEDS: DOXYCYCLINE HYCLATE 100 MG TABLET PO SCH ×2 (09:38→21:28)
[2018-06-28] MEDS: LACTOBACILLUS RHAMNOSUS GG 1 CAPSULE. PO SCH ×2 (09:38→21:28)
[2018-06-28] MEDS: ENOXAPARIN 40 MG/0.4 ML SYRINGE. SQ SCH (09:39)
--- NOTE | 2018-06-28 10:07 | PDOC ---
SUBJECTIVE ROS Better but chest still hurts when he coughs OBJECTIVE Vital Signs Vital Signs Date Time Temp Pulse Resp B/P (MAP) Pulse Ox O2 Delivery O2 Flow Rate FiO2 06/28/18 07:20 98.7 116 18 129/91 (104) 94 Room Air 98.7 I & 0 Intake and Output 06/28/18 06:59 Intake Total 920 ml Balance 920 ml Intake Oral 920 ml # Voids 2 PHYSICAL EXAM Physical Exam GEN: NAD HEEN: Om moist NECK: Supple CVS: Tachy cardiac, Reg Rhythm RESP: CTA , Non labored GI: BS + ve, NO Bruit, Non Tender, Non Distended : [No CVA tenderness, No Suprapubic Tenderness, No Henley neuro- Grossly normal Skin- No rash, lesions EXT- No edema DIAGNOSIS/ASSESSMENT Assessment & Plan JOSE - Etiology ATN No significant medical Hx UA- Proteinuria +, No micr hematuria , will check Ur pr/Cr Noted to have Hypoalbuminemia Renal US unremarkable Renal function improved Cough /pneumonia/sepsis Per primary ? DINORAH- Pt reports symptoms Defer to pulm Discussed with Patient and RN Renal US- The right kidney measures 12.1 cm in length while the left kidney measures 12.8 cm. There is no evidence of hydronephrosis or a renal mass. No abnormal perinephric process is seen. Limited views of urinary bladder show no abnormality. COMMENT/RELEVANT DATA Meds Current Medications Medications (Trade) Dose Ordered Sig/Trish Start Time Stop Time Status Last Admin Dose Admin Acetaminophen (Tylenol) 650 mg PRN Q4HRS PRN 06/27/18 03:45 06/28/18 03:44 DC 06/27/18 21:15 650 MG Albuterol/ Ipratropium (Duoneb) 3 ml RTQID 06/27/18 08:00 06/28/18 06:16 3 ML Ceftriaxone Sodium (Rocephin) 1 gm Q24H 06/27/18 09:30 06/27/18 12:30 1 GM Dexamethasone Sodium Phosphate (Decadron) 10 mg 1X ONCE 06/27/18 03:00 06/27/18 03:01 DC 06/27/18 02:46 10 MG Doxycycline Hyclate (Vibra-Tab) 100 mg 1X ONCE 06/27/18 09:30 06/27/18 09:31 DC 06/27/18 10:45 100 MG Enoxaparin Sodium (Lovenox 40mg Syringe) 40 mg Q24H 06/27/18 10:00 06/28/18 09:39 40 MG Enoxaparin Sodium (Lovenox Per Pharmacy Prophylaxis Dosing) 1 each PRN DAILY PRN 06/27/18 09:30 Guaifenesin (Robitussin Dm) 10 ml PRN Q4HRS PRN 06/27/18 07:30 06/27/18 21:15 10 ML Guaifenesin/ Codeine Phosphate (Robitussin Ac) 10 ml 1X ONCE 06/27/18 09:30 06/27/18 09:31 DC 06/27/18 10:45 10 ML Ibuprofen (Motrin) 600 mg 1X ONCE 06/27/18 03:00 06/27/18 03:01 DC 06/27/18 02:46 600 MG Info (CONTRAST GIVEN -- Rx MONITORING) 1 each PRN DAILY PRN 06/27/18 02:45 06/29/18 02:44 Iohexol (Omnipaque 350 Mg/ml) 100 ml 1X ONCE 06/27/18 03:00 06/27/18 03:01 DC Lactobacillus Rhamnosus (Culturelle) 1 cap BID 06/27/18 21:00 06/28/18 09:38 1 CAP Ondansetron HCl (Zofran) 4 mg PRN Q8HRS PRN 06/27/18 03:45 06/28/18 03:44 DC Piperacillin Sod/ Tazobactam Sod 4.5 gm/Sodium Chloride 100 ml @ 200 mls/hr 1X ONCE 06/27/18 04:00 06/27/18 09:21 DC 06/27/18 03:57 200 MLS/HR Sodium Chloride 1,000 ml @ 1,000 mls/hr 1X ONCE 06/27/18 23:00 06/27/18 23:59 DC 06/27/18 23:00 1,000 MLS/HR Vancomycin HCl (Vanco Per Pharmacy) 1 each PRN DAILY PRN 06/27/18 03:45 06/27/18 09:22 DC 06/27/18 05:50 1 EACH Vancomycin HCl (Vancomycin Trough Level) 1 each 1X ONCE 06/29/18 03:30 06/29/18 03:30 DC Vancomycin HCl 1.25 gm/Sodium Chloride 250 ml @ 167 mls/hr Q24H 06/28/18 04:00 06/28/18 04:00 DC Vancomycin HCl 1.75 gm/Sodium Chloride 500 ml @ 250 mls/hr 1X ONCE 06/27/18 04:30 06/27/18 09:22 DC 06/27/18 03:58 250 MLS/HR Lab Laboratory Tests Test 06/28/18 04:15 White Blood Count 14.4 x10^3/uL (4.0-11.0) Red Blood Count 4.15 x10^6/uL (4.30-5.70) Hemoglobin 12.7 g/dL (13.0-17.5) Hematocrit 37.3 % (39.0-53.0) Mean Corpuscular Volume 90 fL (79-100) Mean Corpuscular Hemoglobin 31 pg (25-35) Mean Corpuscular Hemoglobin Concent 34 g/dL (31-37) Red Cell Distribution Width 13.4 % (11.5-14.5) Platelet Count 126 x10^3/uL (140-400) Neutrophils (%) (Auto) 88 % (31-73) Lymphocytes (%) (Auto) 4 % (24-48) Monocytes (%) (Auto) 8 % (0-9) Eosinophils (%) (Auto) 0 % (0-3) Basophils (%) (Auto) 0 % (0-3) Neutrophils # (Auto) 12.7 x10^3uL (1.8-7.7) Lymphocytes # (Auto) 0.5 x10^3/uL (1.0-4.8) Monocytes # (Auto) 1.1 x10^3/uL (0.0-1.1) Eosinophils # (Auto) 0.0 x10^3/uL (0.0-0.7) Basophils # (Auto) 0.0 x10^3/uL (0.0-0.2) Sodium Level 142 mmol/L (136-145) Potassium Level 4.0 mmol/L (3.5-5.1) Chloride Level 110 mmol/L (98-107) Carbon Dioxide Level 22 mmol/L (21-32) Anion Gap 10 (6-14) Blood Urea Nitrogen 23 mg/dL (8-26) Creatinine 1.1 mg/dL (0.7-1.3) Estimated GFR (Cockcroft-Gault) 72.7 BUN/Creatinine Ratio 21 (6-20) Glucose Level 121 mg/dL (70-99) Calcium Level 8.6 mg/dL (8.5-10.1) Total Bilirubin 0.5 mg/dL (0.2-1.0) Aspartate Amino Transf (AST/SGOT) 15 U/L (15-37) Alanine Aminotransferase (ALT/SGPT) 22 U/L (16-63) Alkaline Phosphatase 56 U/L (46-116) Total Protein 6.2 g/dL (6.4-8.2) Albumin 2.3 g/dL (3.4-5.0) Albumin/Globulin Ratio 0.6 (1.0-1.7) Results All relevant outside records, renal labs, imaging studies, telemetry/EKG's were reviewed. LILIA CHAVEZ MD June 28, 2018 10:07
[2018-06-28] MEDS: cefTRIAXone IV Push 1 GM VIAL. IVP SCH (10:32)
[2018-06-28 10:39] VITALS: BP 134/88
--- NOTE | 2018-06-28 12:20 | PDOC ---
PROGRESS NOTES Chief Complaint Chief Complaint Cough Chest pain- pt believes due to coughing History of Present Illness History of Present Illness Pt seen and examined. Pt was diaphoretic and complained of continuing dyspnea. Vitals Vitals Vital Signs Date Time Temp Pulse Resp B/P (MAP) Pulse Ox O2 Delivery O2 Flow Rate FiO2 06/28/18 10:39 97.5 115 19 134/88 (103) 95 Room Air 97.5 Physical Exam General: Alert, Oriented X3, Cooperative, mild distress Heart: Normal S1, Normal S2, Other (tachycardia) Abdomen: Normal bowel sounds (obese), Soft Extremities: No clubbing, No edema Skin: No rashes, No significant lesion Labs LABS Laboratory Tests Test 06/28/18 04:15 White Blood Count 14.4 x10^3/uL (4.0-11.0) Red Blood Count 4.15 x10^6/uL (4.30-5.70) Hemoglobin 12.7 g/dL (13.0-17.5) Hematocrit 37.3 % (39.0-53.0) Mean Corpuscular Volume 90 fL (79-100) Mean Corpuscular Hemoglobin 31 pg (25-35) Mean Corpuscular Hemoglobin Concent 34 g/dL (31-37) Red Cell Distribution Width 13.4 % (11.5-14.5) Platelet Count 126 x10^3/uL (140-400) Neutrophils (%) (Auto) 88 % (31-73) Lymphocytes (%) (Auto) 4 % (24-48) Monocytes (%) (Auto) 8 % (0-9) Eosinophils (%) (Auto) 0 % (0-3) Basophils (%) (Auto) 0 % (0-3) Neutrophils # (Auto) 12.7 x10^3uL (1.8-7.7) Lymphocytes # (Auto) 0.5 x10^3/uL (1.0-4.8) Monocytes # (Auto) 1.1 x10^3/uL (0.0-1.1) Eosinophils # (Auto) 0.0 x10^3/uL (0.0-0.7) Basophils # (Auto) 0.0 x10^3/uL (0.0-0.2) Sodium Level 142 mmol/L (136-145) Potassium Level 4.0 mmol/L (3.5-5.1) Chloride Level 110 mmol/L (98-107) Carbon Dioxide Level 22 mmol/L (21-32) Anion Gap 10 (6-14) Blood Urea Nitrogen 23 mg/dL (8-26) Creatinine 1.1 mg/dL (0.7-1.3) Estimated GFR (Cockcroft-Gault) 72.7 BUN/Creatinine Ratio 21 (6-20) Glucose Level 121 mg/dL (70-99) Calcium Level 8.6 mg/dL (8.5-10.1) Total Bilirubin 0.5 mg/dL (0.2-1.0) Aspartate Amino Transf (AST/SGOT) 15 U/L (15-37) Alanine Aminotransferase (ALT/SGPT) 22 U/L (16-63) Alkaline Phosphatase 56 U/L (46-116) Total Protein 6.2 g/dL (6.4-8.2) Albumin 2.3 g/dL (3.4-5.0) Albumin/Globulin Ratio 0.6 (1.0-1.7) Review of Systems Review of Systems Patient appears anxious Normal bowl function Assessment and Plan Assessmemt and Plan Problems Medical Problems: (1) Acute renal insufficiency Status: Acute (2) Pneumonia Status: Acute (3) Severe sepsis Status: Acute Assessment: Pneumonia JOSE Plan: IV Vancomycin IV Fluids NS 100 mL/H Labs Duonebs DVT PPx Nephrology and Pulmonology consulted Comment Review of Relevant I have reviewed the following items jaleesa (where applicable) has been applied. Labs Laboratory Tests Test 06/27/18 02:10 06/27/18 02:30 06/27/18 05:16 06/27/18 08:50 White Blood Count 20.7 x10^3/uL (4.0-11.0) Red Blood Count 5.16 x10^6/uL (4.30-5.70) Hemoglobin 15.6 g/dL (13.0-17.5) Hematocrit 45.8 % (39.0-53.0) Mean Corpuscular Volume 89 fL (79-100) Mean Corpuscular Hemoglobin 30 pg (25-35) Mean Corpuscular Hemoglobin Concent 34 g/dL (31-37) Red Cell Distribution Width 13.0 % (11.5-14.5) Platelet Count 164 x10^3/uL (140-400) Neutrophils (%) (Auto) 89 % (31-73) Lymphocytes (%) (Auto) 4 % (24-48) Monocytes (%) (Auto) 8 % (0-9) Eosinophils (%) (Auto) 0 % (0-3) Basophils (%) (Auto) 0 % (0-3) Neutrophils # (Auto) 18.4 x10^3uL (1.8-7.7) Lymphocytes # (Auto) 0.7 x10^3/uL (1.0-4.8) Monocytes # (Auto) 1.6 x10^3/uL (0.0-1.1) Eosinophils # (Auto) 0.0 x10^3/uL (0.0-0.7) Basophils # (Auto) 0.0 x10^3/uL (0.0-0.2) Segmented Neutrophils % 50 % (35-66) Band Neutrophils % 35 % (0-9) Lymphocytes % 2 % (24-48) Monocytes % 6 % (0-10) Metamyelocytes % 6 % (0-0) Myelocytes % 1 % (0-0) Toxic Granulation Slight Platelet Estimate Adequate (ADEQUATE) D-Dimer (Leandra) 1.48 ug/mlFEU (0.00-0.50) Urine Collection Type Unknown Urine Color Jimena Urine Clarity Cloudy Urine pH 5.0 Urine Specific [place] 1.025 Urine Protein 30 mg/dL (NEG-TRACE) Urine Glucose (UA) Negative mg/dL (NEG) Urine Ketones (Stick) Trace mg/dL (NEG) Urine Blood Negative (NEG) Urine Nitrite Negative (NEG) Urine Bilirubin Small (NEG) Urine Urobilinogen Dipstick 1.0 mg/dL (0.2 mg/dL) Urine Leukocyte Esterase Trace (NEG) Urine RBC 0 /HPF (0-2) Urine WBC 5-10 /HPF (0-4) Urine Squamous Epithelial Cells Occ /LPF Urine Amorphous Sediment Present /HPF Urine Bacteria 0 /HPF (0-FEW) Urine Hyaline Casts Many /HPF Urine Mucus Mod /LPF Sodium Level 137 mmol/L (136-145) Potassium Level 4.1 mmol/L (3.5-5.1) Chloride Level 102 mmol/L (98-107) Carbon Dioxide Level 21 mmol/L (21-32) Anion Gap 14 (6-14) Blood Urea Nitrogen 36 mg/dL (8-26) Creatinine 2.8 mg/dL (0.7-1.3) Estimated GFR (Cockcroft-Gault) 24.7 BUN/Creatinine Ratio 13 (6-20) Glucose Level 132 mg/dL (70-99) Lactic Acid Level 3.0 mmol/L (0.4-2.0) 2.5 mmol/L (0.4-2.0) Calcium Level 9.2 mg/dL (8.5-10.1) Magnesium Level 1.9 mg/dL (1.8-2.4) Total Bilirubin 0.8 mg/dL (0.2-1.0) Aspartate Amino Transf (AST/SGOT) 12 U/L (15-37) Alanine Aminotransferase (ALT/SGPT) 25 U/L (16-63) Alkaline Phosphatase 78 U/L (46-116) Creatine Kinase 74 U/L (39-308) Creatine Kinase MB (Mass) 0.5 ng/mL (0.0-3.6) Creatine Kinase MB Relative Index % (0-4) Troponin I Quantitative < 0.017 ng/mL (0.000-0.055) < 0.017 ng/mL (0.000-0.055) < 0.017 ng/mL (0.000-0.055) NC-Daj-M-Type Natriuretic Peptide 1398 pg/mL (0-124) Total Protein 7.5 g/dL (6.4-8.2) Albumin 3.3 g/dL (3.4-5.0) Albumin/Globulin Ratio 0.8 (1.0-1.7) Influenza Type A Antigen Negative (NEGATIVE) Influenza Type B Antigen Negative (NEGATIVE) Test 06/28/18 04:15 White Blood Count 14.4 x10^3/uL (4.0-11.0) Red Blood Count 4.15 x10^6/uL (4.30-5.70) Hemoglobin 12.7 g/dL (13.0-17.5) Hematocrit 37.3 % (39.0-53.0) Mean Corpuscular Volume 90 fL (79-100) Mean Corpuscular Hemoglobin 31 pg (25-35) Mean Corpuscular Hemoglobin Concent 34 g/dL (31-37) Red Cell Distribution Width 13.4 % (11.5-14.5) Platelet Count 126 x10^3/uL (140-400) Neutrophils (%) (Auto) 88 % (31-73) Lymphocytes (%) (Auto) 4 % (24-48) Monocytes (%) (Auto) 8 % (0-9) Eosinophils (%) (Auto) 0 % (0-3) Basophils (%) (Auto) 0 % (0-3) Neutrophils # (Auto) 12.7 x10^3uL (1.8-7.7) Lymphocytes # (Auto) 0.5 x10^3/uL (1.0-4.8) Monocytes # (Auto) 1.1 x10^3/uL (0.0-1.1) Eosinophils # (Auto) 0.0 x10^3/uL (0.0-0.7) Basophils # (Auto) 0.0 x10^3/uL (0.0-0.2) Sodium Level 142 mmol/L (136-145) Potassium Level 4.0 mmol/L (3.5-5.1) Chloride Level 110 mmol/L (98-107) Carbon Dioxide Level 22 mmol/L (21-32) Anion Gap 10 (6-14) Blood Urea Nitrogen 23 mg/dL (8-26) Creatinine 1.1 mg/dL (0.7-1.3) Estimated GFR (Cockcroft-Gault) 72.7 BUN/Creatinine Ratio 21 (6-20) Glucose Level 121 mg/dL (70-99) Calcium Level 8.6 mg/dL (8.5-10.1) Total Bilirubin 0.5 mg/dL (0.2-1.0) Aspartate Amino Transf (AST/SGOT) 15 U/L (15-37) Alanine Aminotransferase (ALT/SGPT) 22 U/L (16-63) Alkaline Phosphatase 56 U/L (46-116) Total Protein 6.2 g/dL (6.4-8.2) Albumin 2.3 g/dL (3.4-5.0) Albumin/Globulin Ratio 0.6 (1.0-1.7) Laboratory Tests Test 06/28/18 04:15 White Blood Count 14.4 x10^3/uL (4.0-11.0) Red Blood Count 4.15 x10^6/uL (4.30-5.70) Hemoglobin 12.7 g/dL (13.0-17.5) Hematocrit 37.3 % (39.0-53.0) Mean Corpuscular Volume 90 fL (79-100) Mean Corpuscular Hemoglobin 31 pg (25-35) Mean Corpuscular Hemoglobin Concent 34 g/dL (31-37) Red Cell Distribution Width 13.4 % (11.5-14.5) Platelet Count 126 x10^3/uL (140-400) Neutrophils (%) (Auto) 88 % (31-73) Lymphocytes (%) (Auto) 4 % (24-48) Monocytes (%) (Auto) 8 % (0-9) Eosinophils (%) (Auto) 0 % (0-3) Basophils (%) (Auto) 0 % (0-3) Neutrophils # (Auto) 12.7 x10^3uL (1.8-7.7) Lymphocytes # (Auto) 0.5 x10^3/uL (1.0-4.8) Monocytes # (Auto) 1.1 x10^3/uL (0.0-1.1) Eosinophils # (Auto) 0.0 x10^3/uL (0.0-0.7) Basophils # (Auto) 0.0 x10^3/uL (0.0-0.2) Sodium Level 142 mmol/L (136-145) Potassium Level 4.0 mmol/L (3.5-5.1) Chloride Level 110 mmol/L (98-107) Carbon Dioxide Level 22 mmol/L (21-32) Anion Gap 10 (6-14) Blood Urea Nitrogen 23 mg/dL (8-26) Creatinine 1.1 mg/dL (0.7-1.3) Estimated GFR (Cockcroft-Gault) 72.7 BUN/Creatinine Ratio 21 (6-20) Glucose Level 121 mg/dL (70-99) Calcium Level 8.6 mg/dL (8.5-10.1) Total Bilirubin 0.5 mg/dL (0.2-1.0) Aspartate Amino Transf (AST/SGOT) 15 U/L (15-37) Alanine Aminotransferase (ALT/SGPT) 22 U/L (16-63) Alkaline Phosphatase 56 U/L (46-116) Total Protein 6.2 g/dL (6.4-8.2) Albumin 2.3 g/dL (3.4-5.0) Albumin/Globulin Ratio 0.6 (1.0-1.7) Microbiology 06/27/18 Blood Culture - Preliminary, Resulted NO GROWTH AFTER 1 DAY Medications Current Medications Sodium Chloride 1,000 ml @ 1,000 mls/hr 1X ONCE IV Last administered on 06/27/18at 02:47; Start 06/27/18 at 03:00; Stop 06/27/18 at 03:59; Status DC Ibuprofen (Motrin) 600 mg 1X ONCE PO Last administered on 06/27/18at 02:46; Start 06/27/18 at 03:00; Stop 06/27/18 at 03:01; Status DC Dexamethasone Sodium Phosphate (Decadron) 10 mg 1X ONCE IV Last administered on 06/27/18at 02:46; Start 06/27/18 at 03:00; Stop 06/27/18 at 03:01; Status DC Sodium Chloride 1,000 ml @ 1,000 mls/hr 1X ONCE IV Last administered on 06/27/18at 02:47; Start 06/27/18 at 03:00; Stop 06/27/18 at 03:59; Status DC Iohexol (Omnipaque 350 Mg/ml) 100 ml 1X ONCE IV ; Start 06/27/18 at 03:00; Stop 06/27/18 at 03:01; Status DC Info (CONTRAST GIVEN -- Rx MONITORING) 1 each PRN DAILY PRN MC SEE COMMENTS; Start 06/27/18 at 02:45; Stop 06/29/18 at 02:44 Piperacillin Sod/ Tazobactam Sod 4.5 gm/Sodium Chloride 100 ml @ 200 mls/hr 1X ONCE IV Last administered on 06/27/18at 03:57; Start 06/27/18 at 04:00; Stop 06/27/18 at 09:21; Status DC Vancomycin HCl 1.75 gm/Sodium Chloride 500 ml @ 250 mls/hr 1X ONCE IV Last administered on 06/27/18at 03:58; Start 06/27/18 at 04:30; Stop 06/27/18 at 09:22; Status DC Sodium Chloride 500 ml @ 500 mls/hr 1X ONCE IV Last administered on 06/27/18at 03:57; Start 06/27/18 at 04:00; Stop 06/27/18 at 04:59; Status DC Vancomycin HCl (Vanco Per Pharmacy) 1 each PRN DAILY PRN MC SEE COMMENTS Last administered on 06/27/18at 05:50; Start 06/27/18 at 03:45; Stop 06/27/18 at 09:22; Status DC Ondansetron HCl (Zofran) 4 mg PRN Q8HRS PRN IV NAUSEA/VOMITING 1ST CHOICE; S tart 06/27/18 at 03:45; Stop 06/28/18 at 03:44; Status DC Acetaminophen (Tylenol) 650 mg PRN Q4HRS PRN PO FEVER Last administered on 06/27/18at 21:15; Start 06/27/18 at 03:45; Stop 06/28/18 at 03:44; Status DC Vancomycin HCl 1.25 gm/Sodium Chloride 250 ml @ 167 mls/hr Q24H IV ; Start 06/28/18 at 04:00; Stop 06/28/18 at 04:00; Status DC Vancomycin HCl (Vancomycin Trough Level) 1 each 1X ONCE MC ; Start 06/29/18 at 03:30; Stop 06/29/18 at 03:30; Status DC Albuterol/ Ipratropium (Duoneb) 3 ml RTQID NEB Last administered on 06/28/18at 06:16; Start 06/27/18 at 08:00 Guaifenesin (Robitussin Dm) 10 ml PRN Q4HRS PRN PO COUGH Last administered on 06/27/18at 21:15; Start 06/27/18 at 07:30 Sodium Chloride 1,000 ml @ 100 mls/hr Q10H IV Last administered on 06/28/18at 09:38; Start 06/27/18 at 09:00 Guaifenesin/ Codeine Phosphate (Robitussin Ac) 10 ml 1X ONCE PO Last administered on 06/27/18at 10:45; Start 06/27/18 at 09:30; Stop 06/27/18 at 09:31; Status DC Sodium Chloride 1,000 ml @ 1,000 mls/hr 1X ONCE IV Last administered on 06/27/18at 10:30; Start 06/27/18 at 09:30; Stop 06/27/18 at 10:34; Status DC Enoxaparin Sodium (Lovenox Per Pharmacy Prophylaxis Dosing) 1 each PRN DAILY PRN MC SEE COMMENTS; Start 06/27/18 at 09:30 Ceftriaxone Sodium (Rocephin) 1 gm Q24H IVP Last administered on 06/28/18 10:32; Start 06/27/18 at 09:30 Doxycycline Hyclate (Vibra-Tab) 100 mg BID PO Last administered on 06/28/18 09:38; Start 06/27/18 at 21:00 Doxycycline Hyclate (Vibra-Tab) 100 mg 1X ONCE PO Last administered on 06/27/18 10:45; Start 06/27/18 at 09:30; Stop 06/27/18 at 09:31; Status DC Enoxaparin Sodium (Lovenox 40mg Syringe) 40 mg Q24H SQ Last administered on 06/28/18 09:39; Start 06/27/18 at 10:00 Lactobacillus Rhamnosus (Culturelle) 1 cap BID PO Last administered on 06/28/18 09:38; Start 06/27/18 at 21:00 Sodium Chloride 1,000 ml @ 1,000 mls/hr 1X ONCE IV Last administered on 06/27/18 16:30; Start 06/27/18 at 16:30; Stop 06/27/18 at 19:48; Status DC Sodium Chloride 1,000 ml @ 1,000 mls/hr 1X ONCE IV Last administered on 06/27/18 18:00; Start 06/27/18 at 18:00; Stop 06/27/18 at 19:48; Status DC Sodium Chloride 1,000 ml @ 1,000 mls/hr 1X ONCE IV Last administered on 06/27/18at 23:00; Start 06/27/18 at 23:00; Stop 06/27/18 at 23:59; Status DC Active Scripts Active No Active Prescriptions or Reported Medications Vitals/I & O Vital Sign - Last 24 Hours 06/27/18 06/27/18 06/27/18 06/27/18 15:00 15:25 19:10 20:00 Temp 98.1 98.7 98.1 98.7 Pulse 128 134 Resp 20 20 B/P (MAP) 107/69 (82) 135/91 (106) Pulse Ox 96 94 96 O2 Delivery Room Air Room Air Room Air Room Air 06/27/18 06/27/18 06/28/18 06/28/18 20:20 23:10 03:10 06:16 Temp 98.7 98.6 98.7 98.6 Pulse 131 115 Resp 18 B/P (MAP) 127/84 (98) 134/91 (105) Pulse Ox 99 96 94 O2 Delivery Room Air Room Air Room Air Room Air 06/28/18 06/28/18 07:20 10:39 Temp 98.7 97.5 98.7 97.5 Pulse 116 115 Resp B/P (MAP) 129/91 (104) 134/88 (103) Pulse Ox 94 95 O2 Delivery Room Air Room Air Intake and Output 06/27/18 06/27/18 06/28/18 14:59 22:59 06:59 Intake Total 480 ml 240 ml 200 ml Balance 480 ml 240 ml 200 ml SCAR HEALY III DO June 28, 2018 12:20
[2018-06-28] MEDS: guaiFENesin DM 200MG/20MG 10 ML SYRUP PO PRN ×2 (12:28→21:28)
[2018-06-28 12:58] LABS: CREATININE,RANDOM URINE 56.6 mg/dL (Not Establ.)
[2018-06-28] MEDS ORDERED: IOHEXOL 350 MG/ML 100 ML VIAL. IV ONE (13:30)
[2018-06-28] MEDS ORDERED: CONTRAST GIVEN. MC PRN (13:45)
[2018-06-28] MEDS ORDERED: MORPHINE SULFATE 2 MG/ML VIAL. IV PRN (14:15)
[2018-06-28 14:37] VITALS: BP 143/84
[2018-06-28] MEDS: HYDROcodone/APAP 5/325MG 1 TAB TABLET PO PRN (15:06)
--- NOTE | 2018-06-28 16:29 | RAD ---
CT of the chest without contrast 06/28/2018 INDICATION: Pneumonia COMPARISON STUDY: Chest radiograph, yesterday TECHNIQUE: Multidetector CT imaging of the chest was performed without the administration of IV contrast FINDINGS: Heart size is normal. No significant pericardial effusion is identified. Mildly prominent scattered mediastinal lymph nodes are noted. This may be reactive given other findings. There is no pneumothorax. There is a small left pleural effusion. There is dense consolidation occupying the majority of the left lower lobe. The appearance is most consistent with bronchopneumonia. The right lung is essentially clear. The upper abdomen demonstrate no acute abnormality. No acute osseous changes are identified. IMPRESSION: Dense consolidation in the left lower lobe consistent with pneumonia with small associated left pleural effusion. Mild mediastinal adenopathy is seen, likely reactive. Imaging follow-up to ensure resolution is recommended. CT DOSING PQRS STATEMENT: One or more of the following individualized dose reduction techniques were utilized for this examination: 1. Automated exposure control 2. Adjustment of the mA and/or kV according to patient size 3. Use of iterative reconstruction technique Electronically signed by: Charles Garcia MD (06/28/2018 4:26 PM) [id number]
--- NOTE | 2018-06-28 16:54 | NUR ---
Called Dr. Robison at 1530 clarifying Chest CTA. The patient has elevated crea/JOSE. Order received to do Chest CT without contrast instead.
--- NOTE | 2018-06-28 17:38 | PDOC ---
PULMONARY PROGRESS NOTES Subjective slightly better Vitals Vital Signs Date Time Temp Pulse Resp B/P (MAP) Pulse Ox O2 Delivery O2 Flow Rate FiO2 06/28/18 16:06 18 99 Room Air 06/28/18 14:37 98.2 124 143/84 (103) 98.2 ROS: No Nausea, No Abdominal Pain, No Increase Cough General: Alert Lungs: Crackles Cardiovascular: S1, S2 Abdomen: Soft Neuro Exam: Alert Extremities: No Edema Skin: Warm, Dry, Other (hot) Labs Laboratory Tests Test 06/27/18 02:10 06/27/18 02:30 06/27/18 05:16 06/27/18 08:50 White Blood Count 20.7 x10^3/uL (4.0-11.0) Red Blood Count 5.16 x10^6/uL (4.30-5.70) Hemoglobin 15.6 g/dL (13.0-17.5) Hematocrit 45.8 % (39.0-53.0) Mean Corpuscular Volume 89 fL (79-100) Mean Corpuscular Hemoglobin 30 pg (25-35) Mean Corpuscular Hemoglobin Concent 34 g/dL (31-37) Red Cell Distribution Width 13.0 % (11.5-14.5) Platelet Count 164 x10^3/uL (140-400) Neutrophils (%) (Auto) 89 % (31-73) Lymphocytes (%) (Auto) 4 % (24-48) Monocytes (%) (Auto) 8 % (0-9) Eosinophils (%) (Auto) 0 % (0-3) Basophils (%) (Auto) 0 % (0-3) Neutrophils # (Auto) 18.4 x10^3uL (1.8-7.7) Lymphocytes # (Auto) 0.7 x10^3/uL (1.0-4.8) Monocytes # (Auto) 1.6 x10^3/uL (0.0-1.1) Eosinophils # (Auto) 0.0 x10^3/uL (0.0-0.7) Basophils # (Auto) 0.0 x10^3/uL (0.0-0.2) Segmented Neutrophils % 50 % (35-66) Band Neutrophils % 35 % (0-9) Lymphocytes % 2 % (24-48) Monocytes % 6 % (0-10) Metamyelocytes % 6 % (0-0) Myelocytes % 1 % (0-0) Toxic Granulation Slight Platelet Estimate Adequate (ADEQUATE) D-Dimer (Leandra) 1.48 ug/mlFEU (0.00-0.50) Urine Collection Type Unknown Urine Color [place]ena Urine Clarity Cloudy Urine pH 5.0 Urine Specific [place] 1.025 Urine Protein 30 mg/dL (NEG-TRACE) Urine Glucose (UA) Negative mg/dL (NEG) Urine Ketones (Stick) Trace mg/dL (NEG) Urine Blood Negative (NEG) Urine Nitrite Negative (NEG) Urine Bilirubin Small (NEG) Urine Urobilinogen Dipstick 1.0 mg/dL (0.2 mg/dL) Urine Leukocyte Esterase Trace (NEG) Urine RBC 0 /HPF (0-2) Urine WBC 5-10 /HPF (0-4) Urine Squamous Epithelial Cells Occ /LPF Urine Amorphous Sediment Present /HPF Urine Bacteria 0 /HPF (0-FEW) Urine Hyaline Casts Many /HPF Urine Mucus Mod /LPF Sodium Level 137 mmol/L (136-145) Potassium Level 4.1 mmol/L (3.5-5.1) Chloride Level 102 mmol/L (98-107) Carbon Dioxide Level 21 mmol/L (21-32) Anion Gap 14 (6-14) Blood Urea Nitrogen 36 mg/dL (8-26) Creatinine 2.8 mg/dL (0.7-1.3) Estimated GFR (Cockcroft-Gault) 24.7 BUN/Creatinine Ratio 13 (6-20) Glucose Level 132 mg/dL (70-99) Lactic Acid Level 3.0 mmol/L (0.4-2.0) 2.5 mmol/L (0.4-2.0) Calcium Level 9.2 mg/dL (8.5-10.1) Magnesium Level 1.9 mg/dL (1.8-2.4) Total Bilirubin 0.8 mg/dL (0.2-1.0) Aspartate Amino Transf (AST/SGOT) 12 U/L (15-37) Alanine Aminotransferase (ALT/SGPT) 25 U/L (16-63) Alkaline Phosphatase 78 U/L (46-116) Creatine Kinase 74 U/L (39-308) Creatine Kinase MB (Mass) 0.5 ng/mL (0.0-3.6) Creatine Kinase MB Relative Index % (0-4) Troponin I Quantitative < 0.017 ng/mL (0.000-0.055) < 0.017 ng/mL (0.000-0.055) < 0.017 ng/mL (0.000-0.055) BJ-Ymd-H-Type Natriuretic Peptide 1398 pg/mL (0-124) Total Protein 7.5 g/dL (6.4-8.2) Albumin 3.3 g/dL (3.4-5.0) Albumin/Globulin Ratio 0.8 (1.0-1.7) Influenza Type A Antigen Negative (NEGATIVE) Influenza Type B Antigen Negative (NEGATIVE) Test 06/28/18 04:15 06/28/18 12:15 White Blood Count 14.4 x10^3/uL (4.0-11.0) Red Blood Count 4.15 x10^6/uL (4.30-5.70) Hemoglobin 12.7 g/dL (13.0-17.5) Hematocrit 37.3 % (39.0-53.0) Mean Corpuscular Volume 90 fL (79-100) Mean Corpuscular Hemoglobin 31 pg (25-35) Mean Corpuscular Hemoglobin Concent 34 g/dL (31-37) Red Cell Distribution Width 13.4 % (11.5-14.5) Platelet Count 126 x10^3/uL (140-400) Neutrophils (%) (Auto) 88 % (31-73) Lymphocytes (%) (Auto) 4 % (24-48) Monocytes (%) (Auto) 8 % (0-9) Eosinophils (%) (Auto) 0 % (0-3) Basophils (%) (Auto) 0 % (0-3) Neutrophils # (Auto) 12.7 x10^3uL (1.8-7.7) Lymphocytes # (Auto) 0.5 x10^3/uL (1.0-4.8) Monocytes # (Auto) 1.1 x10^3/uL (0.0-1.1) Eosinophils # (Auto) 0.0 x10^3/uL (0.0-0.7) Basophils # (Auto) 0.0 x10^3/uL (0.0-0.2) Sodium Level 142 mmol/L (136-145) Potassium Level 4.0 mmol/L (3.5-5.1) Chloride Level 110 mmol/L (98-107) Carbon Dioxide Level 22 mmol/L (21-32) Anion Gap 10 (6-14) Blood Urea Nitrogen 23 mg/dL (8-26) Creatinine 1.1 mg/dL (0.7-1.3) Estimated GFR (Cockcroft-Gault) 72.7 BUN/Creatinine Ratio 21 (6-20) Glucose Level 121 mg/dL (70-99) Calcium Level 8.6 mg/dL (8.5-10.1) Total Bilirubin 0.5 mg/dL (0.2-1.0) Aspartate Amino Transf (AST/SGOT) 15 U/L (15-37) Alanine Aminotransferase (ALT/SGPT) 22 U/L (16-63) Alkaline Phosphatase 56 U/L (46-116) Total Protein 6.2 g/dL (6.4-8.2) Albumin 2.3 g/dL (3.4-5.0) Albumin/Globulin Ratio 0.6 (1.0-1.7) Urine Random Creatinine 56.6 mg/dL (Not Establ.) Urine Random Total Protein 63.5 mg/dL (Not Establ.) Urine Protein/Creatinine Ratio 1122 mg/g (0-200) Laboratory Tests Test 06/28/18 04:15 06/28/18 12:15 White Blood Count 14.4 x10^3/uL (4.0-11.0) Red Blood Count 4.15 x10^6/uL (4.30-5.70) Hemoglobin 12.7 g/dL (13.0-17.5) Hematocrit 37.3 % (39.0-53.0) Mean Corpuscular Volume 90 fL (79-100) Mean Corpuscular Hemoglobin 31 pg (25-35) Mean Corpuscular Hemoglobin Concent 34 g/dL (31-37) Red Cell Distribution Width 13.4 % (11.5-14.5) Platelet Count 126 x10^3/uL (140-400) Neutrophils (%) (Auto) 88 % (31-73) Lymphocytes (%) (Auto) 4 % (24-48) Monocytes (%) (Auto) 8 % (0-9) Eosinophils (%) (Auto) 0 % (0-3) Basophils (%) (Auto) 0 % (0-3) Neutrophils # (Auto) 12.7 x10^3uL (1.8-7.7) Lymphocytes # (Auto) 0.5 x10^3/uL (1.0-4.8) Monocytes # (Auto) 1.1 x10^3/uL (0.0-1.1) Eosinophils # (Auto) 0.0 x10^3/uL (0.0-0.7) Basophils # (Auto) 0.0 x10^3/uL (0.0-0.2) Sodium Level 142 mmol/L (136-145) Potassium Level 4.0 mmol/L (3.5-5.1) Chloride Level 110 mmol/L (98-107) Carbon Dioxide Level 22 mmol/L (21-32) Anion Gap 10 (6-14) Blood Urea Nitrogen 23 mg/dL (8-26) Creatinine 1.1 mg/dL (0.7-1.3) Estimated GFR (Cockcroft-Gault) 72.7 BUN/Creatinine Ratio 21 (6-20) Glucose Level 121 mg/dL (70-99) Calcium Level 8.6 mg/dL (8.5-10.1) Total Bilirubin 0.5 mg/dL (0.2-1.0) Aspartate Amino Transf (AST/SGOT) 15 U/L (15-37) Alanine Aminotransferase (ALT/SGPT) 22 U/L (16-63) Alkaline Phosphatase 56 U/L (46-116) Total Protein 6.2 g/dL (6.4-8.2) Albumin 2.3 g/dL (3.4-5.0) Albumin/Globulin Ratio 0.6 (1.0-1.7) Urine Random Creatinine 56.6 mg/dL (Not Establ.) Urine Random Total Protein 63.5 mg/dL (Not Establ.) Urine Protein/Creatinine Ratio 1122 mg/g (0-200) Medications Active Scripts Medications Dose Route/Sig Max Daily Dose Days Date Category No Active Prescriptions or Reported Medications Rx Impression . IMPRESSION: 1. Pneumonia, suspect Gram negative. 2. Tobacco dependence. 3. Small Effusion 4. JOSE IMPRESSION: Dense consolidation in the left lower lobe consistent with pneumonia with small associated left pleural effusion. Mild mediastinal adenopathy is seen, likely reactive. Imaging follow-up to ensure resolution is recommended. Plan . follow up in 8 weeks with repeat cxr ct reviewed looks like pneumonia nor maligncy small effusion sec to pneumonia BALJIT PETERSON MD June 28, 2018 17:37
[2018-06-28 19:25] VITALS: BP 134/86
[2018-06-28 23:11] VITALS: BP 135/94
[2018-06-29] MEDS: HYDROcodone/APAP 5/325MG 1 TAB TABLET PO PRN ×2 (03:02→09:14)
[2018-06-29 03:37] VITALS: BP 143/89
[2018-06-29 04:19] LABS: BASO % 0 % (0-3); EOS % 0 % (0-3); HEMATOCRIT 37.8 % (39.0-53.0); HEMOGLOBIN 12.6 g/dL (13.0-17.5); LYMPH # 1.1 x10^3/uL (1.0-4.8); LYMPH % 8 % (24-48); MEAN CORPUSCULAR HEMOGLOBIN 30 pg (25-35); MEAN CORPUSCULAR HGB CONC 33 g/dL (31-37); MEAN CORPUSCULAR VOLUME 90 fL (79-100); MONO # 1.9 x10^3/uL (0.0-1.1); MONO % 13 % (0-9); NEUT # 12.1 x10^3uL (1.8-7.7); NEUT % 80 % (31-73); PLATELET COUNT 156 x10^3/uL (140-400); RED BLOOD COUNT 4.21 x10^6/uL (4.30-5.70); RED CELL DISTRIBUTION WIDTH 13.8 % (11.5-14.5); WHITE BLOOD COUNT 15.1 x10^3/uL (4.0-11.0)
[2018-06-29 04:35] LABS: GFR 81.2; POTASSIUM 3.9 mmol/L (3.5-5.1)
[2018-06-29] MEDS: IV NORMAL SALINE 1000ML BAG 1,000 ML IV SCH (06:22)
[2018-06-29 07:20] VITALS: BP 129/95
[2018-06-29] MEDS: IPRATRPIUM/ALBUTEROL 0.5/2.5MG 3 ML NEBU. NEB SCH ×2 (08:36→12:06)
[2018-06-29] MEDS: DOXYCYCLINE HYCLATE 100 MG TABLET PO SCH (09:13)
[2018-06-29] MEDS: LACTOBACILLUS RHAMNOSUS GG 1 CAPSULE. PO SCH (09:13)
[2018-06-29] MEDS: cefTRIAXone IV Push 1 GM VIAL. IVP SCH (09:14)
[2018-06-29] MEDS: ENOXAPARIN 40 MG/0.4 ML SYRINGE. SQ SCH (09:14)
--- NOTE | 2018-06-29 10:11 | PDOC ---
SUBJECTIVE ROS Ambulating, feeling better OBJECTIVE Vital Signs Vital Signs Date Time Temp Pulse Resp B/P (MAP) Pulse Ox O2 Delivery O2 Flow Rate FiO2 06/29/18 08:37 95 Room Air 06/29/18 07:20 98.2 104 18 129/95 (106) 98.2 I & 0 Intake and Output 06/29/18 06:59 Intake Total 1580 ml Balance 1580 ml Intake Oral 1580 ml # Voids 9 # Bowel Movements 1 PHYSICAL EXAM Physical Exam GEN: NAD HEEN: Om moist NECK: Supple CVS: Tachy cardiac, Reg Rhythm RESP: CTA , Non labored GI: BS + ve, NO Bruit, Non Tender, Non Distended : [No CVA tenderness, No Suprapubic Tenderness, No Henley neuro- Grossly normal Skin- No rash, lesions EXT- No edema DIAGNOSIS/ASSESSMENT Assessment & Plan JOSE - Etiology ATN No significant medical Hx UA- No micr hematuria Renal US unremarkable , Renal function improved proteinuria- Pr/Cr 1.1 gm Repeat as outpatient after acute issues resolved Cough /pneumonia/sepsis Pulm following DINORAH-Defer to pulm Discussed with Patient Recommend follow up with PCP after dc We will sign off Renal US- The right kidney measures 12.1 cm in length while the left kidney measures 12.8 cm. There is no evidence of hydronephrosis or a renal mass. No abnormal perinephric process is seen. Limited views of urinary bladder show no abnormality. COMMENT/RELEVANT DATA Meds Current Medications Medications (Trade) Dose Ordered Sig/Trish Start Time Stop Time Status Last Admin Dose Admin Acetaminophen (Tylenol) 650 mg PRN Q4HRS PRN 06/27/18 03:45 06/28/18 03:44 DC 06/27/18 21:15 650 MG Acetaminophen/ Hydrocodone Bitart (Lortab 5/325) 1 tab PRN Q6HRS PRN 06/28/18 14:30 06/29/18 09:14 1 TAB Albuterol/ Ipratropium (Duoneb) 3 ml RTQID 06/27/18 08:00 06/29/18 08:36 3 ML Ceftriaxone Sodium (Rocephin) 1 gm Q24H 06/27/18 09:30 06/29/18 09:14 1 GM Dexamethasone Sodium Phosphate (Decadron) 10 mg 1X ONCE 06/27/18 03:00 06/27/18 03:01 DC 06/27/18 02:46 10 MG Doxycycline Hyclate (Vibra-Tab) 100 mg 1X ONCE 06/27/18 09:30 06/27/18 09:31 DC 06/27/18 10:45 100 MG Enoxaparin Sodium (Lovenox 40mg Syringe) 40 mg Q24H 06/27/18 10:00 06/29/18 09:14 40 MG Enoxaparin Sodium (Lovenox Per Pharmacy Prophylaxis Dosing) 1 each PRN DAILY PRN 06/27/18 09:30 Guaifenesin (Robitussin Dm) 10 ml PRN Q4HRS PRN 06/27/18 07:30 06/28/18 21:28 10 ML Guaifenesin/ Codeine Phosphate (Robitussin Ac) 10 ml 1X ONCE 06/27/18 09:30 06/27/18 09:31 DC 06/27/18 10:45 10 ML Ibuprofen (Motrin) 600 mg 1X ONCE 06/27/18 03:00 06/27/18 03:01 DC 06/27/18 02:46 600 MG Info (CONTRAST GIVEN -- Rx MONITORING) 1 each PRN DAILY PRN 06/28/18 13:45 06/30/18 13:44 Iohexol (Omnipaque 350 Mg/ml) 100 ml 1X ONCE 06/28/18 13:30 06/28/18 13:33 DC Lactobacillus Rhamnosus (Culturelle) 1 cap BID 06/27/18 21:00 06/29/18 09:13 1 CAP Morphine Sulfate (Morphine Sulfate) 2 mg PRN Q2HR PRN 06/28/18 14:15 06/29/18 06:22 2 MG Ondansetron HCl (Zofran) 4 mg PRN Q8HRS PRN 06/27/18 03:45 06/28/18 03:44 DC Piperacillin Sod/ Tazobactam Sod 4.5 gm/Sodium Chloride 100 ml @ 200 mls/hr 1X ONCE 06/27/18 04:00 06/27/18 09:21 DC 06/27/18 03:57 200 MLS/HR Sodium Chloride 1,000 ml @ 1,000 mls/hr 1X ONCE 06/27/18 23:00 06/27/18 23:59 DC 06/27/18 23:00 1,000 MLS/HR Vancomycin HCl (Vanco Per Pharmacy) 1 each PRN DAILY PRN 06/27/18 03:45 06/27/18 09:22 DC 06/27/18 05:50 1 EACH Vancomycin HCl (Vancomycin Trough Level) 1 each 1X ONCE 06/29/18 03:30 06/29/18 03:30 DC Vancomycin HCl 1.25 gm/Sodium Chloride 250 ml @ 167 mls/hr Q24H 06/28/18 04:00 06/28/18 04:00 DC Vancomycin HCl 1.75 gm/Sodium Chloride 500 ml @ 250 mls/hr 1X ONCE 06/27/18 04:30 06/27/18 09:22 DC 06/27/18 03:58 250 MLS/HR Lab Laboratory Tests Test 06/28/18 12:15 06/29/18 03:45 Urine Random Creatinine 56.6 mg/dL (Not Establ.) Urine Random Total Protein 63.5 mg/dL (Not Establ.) Urine Protein/Creatinine Ratio 1122 mg/g (0-200) White Blood Count 15.1 x10^3/uL (4.0-11.0) Red Blood Count 4.21 x10^6/uL (4.30-5.70) Hemoglobin 12.6 g/dL (13.0-17.5) Hematocrit 37.8 % (39.0-53.0) Mean Corpuscular Volume 90 fL (79-100) Mean Corpuscular Hemoglobin 30 pg (25-35) Mean Corpuscular Hemoglobin Concent 33 g/dL (31-37) Red Cell Distribution Width 13.8 % (11.5-14.5) Platelet Count 156 x10^3/uL (140-400) Neutrophils (%) (Auto) 80 % (31-73) Lymphocytes (%) (Auto) 8 % (24-48) Monocytes (%) (Auto) 13 % (0-9) Eosinophils (%) (Auto) 0 % (0-3) Basophils (%) (Auto) 0 % (0-3) Neutrophils # (Auto) 12.1 x10^3uL (1.8-7.7) Lymphocytes # (Auto) 1.1 x10^3/uL (1.0-4.8) Monocytes # (Auto) 1.9 x10^3/uL (0.0-1.1) Eosinophils # (Auto) 0.0 x10^3/uL (0.0-0.7) Basophils # (Auto) 0.0 x10^3/uL (0.0-0.2) Sodium Level 141 mmol/L (136-145) Potassium Level 3.9 mmol/L (3.5-5.1) Chloride Level 108 mmol/L (98-107) Carbon Dioxide Level 23 mmol/L (21-32) Anion Gap 10 (6-14) Blood Urea Nitrogen 22 mg/dL (8-26) Creatinine 1.0 mg/dL (0.7-1.3) Estimated GFR (Cockcroft-Gault) 81.2 Glucose Level 109 mg/dL (70-99) Calcium Level 9.0 mg/dL (8.5-10.1) Results All relevant outside records, renal labs, imaging studies, telemetry/EKG's were reviewed CT chest w/o Contrast- 03/04/2018 -- Dense consolidation in the left lower lobe consistent with pneumonia with small associated left pleural effusion. Mild mediastinal adenopathy is seen, likely reactive. Imaging follow-up to ensure resolution is recommended. LILIA CHAVEZ MD June 29, 2018 10:11
[2018-06-29 11:05] VITALS: BP 137/97
--- NOTE | 2018-06-29 12:26 | PDOC ---
PULMONARY PROGRESS NOTES Subjective better Vitals Vital Signs Date Time Temp Pulse Resp B/P (MAP) Pulse Ox O2 Delivery O2 Flow Rate FiO2 06/29/18 12:07 95 Room Air 06/29/18 11:05 98.3 106 19 137/97 (110) 98.3 ROS: No Nausea, No Abdominal Pain, No Increase Cough General: Alert Lungs: Crackles (LEFT BASE) Cardiovascular: S1, S2 Abdomen: Soft Neuro Exam: Alert Extremities: No Edema Skin: Warm, Dry, Other (hot) Labs Laboratory Tests Test 06/28/18 04:15 06/28/18 12:15 06/29/18 03:45 White Blood Count 14.4 x10^3/uL (4.0-11.0) 15.1 x10^3/uL (4.0-11.0) Red Blood Count 4.15 x10^6/uL (4.30-5.70) 4.21 x10^6/uL (4.30-5.70) Hemoglobin 12.7 g/dL (13.0-17.5) 12.6 g/dL (13.0-17.5) Hematocrit 37.3 % (39.0-53.0) 37.8 % (39.0-53.0) Mean Corpuscular Volume 90 fL (79-100) 90 fL (79-100) Mean Corpuscular Hemoglobin 31 pg (25-35) 30 pg (25-35) Mean Corpuscular Hemoglobin Concent 34 g/dL (31-37) 33 g/dL (31-37) Red Cell Distribution Width 13.4 % (11.5-14.5) 13.8 % (11.5-14.5) Platelet Count 126 x10^3/uL (140-400) 156 x10^3/uL (140-400) Neutrophils (%) (Auto) 88 % (31-73) 80 % (31-73) Lymphocytes (%) (Auto) 4 % (24-48) 8 % (24-48) Monocytes (%) (Auto) 8 % (0-9) 13 % (0-9) Eosinophils (%) (Auto) 0 % (0-3) 0 % (0-3) Basophils (%) (Auto) 0 % (0-3) 0 % (0-3) Neutrophils # (Auto) 12.7 x10^3uL (1.8-7.7) 12.1 x10^3uL (1.8-7.7) Lymphocytes # (Auto) 0.5 x10^3/uL (1.0-4.8) 1.1 x10^3/uL (1.0-4.8) Monocytes # (Auto) 1.1 x10^3/uL (0.0-1.1) 1.9 x10^3/uL (0.0-1.1) Eosinophils # (Auto) 0.0 x10^3/uL (0.0-0.7) 0.0 x10^3/uL (0.0-0.7) Basophils # (Auto) 0.0 x10^3/uL (0.0-0.2) 0.0 x10^3/uL (0.0-0.2) Sodium Level 142 mmol/L (136-145) 141 mmol/L (136-145) Potassium Level 4.0 mmol/L (3.5-5.1) 3.9 mmol/L (3.5-5.1) Chloride Level 110 mmol/L (98-107) 108 mmol/L (98-107) Carbon Dioxide Level 22 mmol/L (21-32) 23 mmol/L (21-32) Anion Gap 10 (6-14) 10 (6-14) Blood Urea Nitrogen 23 mg/dL (8-26) 22 mg/dL (8-26) Creatinine 1.1 mg/dL (0.7-1.3) 1.0 mg/dL (0.7-1.3) Estimated GFR (Cockcroft-Gault) 72.7 81.2 BUN/Creatinine Ratio 21 (6-20) Glucose Level 121 mg/dL (70-99) 109 mg/dL (70-99) Calcium Level 8.6 mg/dL (8.5-10.1) 9.0 mg/dL (8.5-10.1) Total Bilirubin 0.5 mg/dL (0.2-1.0) Aspartate Amino Transf (AST/SGOT) 15 U/L (15-37) Alanine Aminotransferase (ALT/SGPT) 22 U/L (16-63) Alkaline Phosphatase 56 U/L (46-116) Total Protein 6.2 g/dL (6.4-8.2) Albumin 2.3 g/dL (3.4-5.0) Albumin/Globulin Ratio 0.6 (1.0-1.7) Urine Random Creatinine 56.6 mg/dL (Not Establ.) Urine Random Total Protein 63.5 mg/dL (Not Establ.) Urine Protein/Creatinine Ratio 1122 mg/g (0-200) Laboratory Tests Test 06/29/18 03:45 White Blood Count 15.1 x10^3/uL (4.0-11.0) Red Blood Count 4.21 x10^6/uL (4.30-5.70) Hemoglobin 12.6 g/dL (13.0-17.5) Hematocrit 37.8 % (39.0-53.0) Mean Corpuscular Volume 90 fL (79-100) Mean Corpuscular Hemoglobin 30 pg (25-35) Mean Corpuscular Hemoglobin Concent 33 g/dL (31-37) Red Cell Distribution Width 13.8 % (11.5-14.5) Platelet Count 156 x10^3/uL (140-400) Neutrophils (%) (Auto) 80 % (31-73) Lymphocytes (%) (Auto) 8 % (24-48) Monocytes (%) (Auto) 13 % (0-9) Eosinophils (%) (Auto) 0 % (0-3) Basophils (%) (Auto) 0 % (0-3) Neutrophils # (Auto) 12.1 x10^3uL (1.8-7.7) Lymphocytes # (Auto) 1.1 x10^3/uL (1.0-4.8) Monocytes # (Auto) 1.9 x10^3/uL (0.0-1.1) Eosinophils # (Auto) 0.0 x10^3/uL (0.0-0.7) Basophils # (Auto) 0.0 x10^3/uL (0.0-0.2) Sodium Level 141 mmol/L (136-145) Potassium Level 3.9 mmol/L (3.5-5.1) Chloride Level 108 mmol/L (98-107) Carbon Dioxide Level 23 mmol/L (21-32) Anion Gap 10 (6-14) Blood Urea Nitrogen 22 mg/dL (8-26) Creatinine 1.0 mg/dL (0.7-1.3) Estimated GFR (Cockcroft-Gault) 81.2 Glucose Level 109 mg/dL (70-99) Calcium Level 9.0 mg/dL (8.5-10.1) Medications Active Scripts Medications Dose Route/Sig Max Daily Dose Days Date Category No Active Prescriptions or Reported Medications Rx Impression . IMPRESSION: 1. LLL Pneumonia, suspect Gram negative. 2. Tobacco dependence. 3. Small Effusion 4. JOSE IMPRESSION: Dense consolidation in the left lower lobe consistent with pneumonia with small associated left pleural effusion. Mild mediastinal adenopathy is seen, likely reactive. Imaging follow-up to ensure resolution is recommended. Plan . follow up in 8 weeks with repeat cxr ct reviewed c/w pneumonia no malignancy small effusion sec to pneumonia continue abx dc home in 24-48 hr on PO ABX will be available for further help if needed SHA DANIELS MD June 29, 2018 12:26
--- NOTE | 2018-06-29 13:46 | PDOC ---
PROGRESS NOTES Chief Complaint Chief Complaint Cough Chest pain- pt believes due to coughing Pleurisy Tobacco abuse disorder History of Present Illness History of Present Illness Pt seen and examined. Pt was looking much improved, but complained of pain upon inspiration. Pt requested me to talk to his Boss and gave permission to discuss his health. I advised his boss to let him recover over the weekend after his probable discharge today. Probable discharge today with clinical improvement, resolved JOSE, and WBC trending down. Vitals Vitals Vital Signs Date Time Temp Pulse Resp B/P (MAP) Pulse Ox O2 Delivery O2 Flow Rate FiO2 06/29/18 12:07 95 Room Air 06/29/18 11:05 98.3 106 19 137/97 (110) 98.3 Physical Exam General: Alert, Oriented X3, Cooperative, mild distress Heart: Normal S1, Normal S2, Other (tachycardia) Lungs: Crackles (LEFT BASE) Abdomen: Normal bowel sounds (obese), Soft Extremities: No clubbing, No edema Skin: No rashes, No significant lesion Labs LABS Laboratory Tests Test 06/29/18 03:45 White Blood Count 15.1 x10^3/uL (4.0-11.0) Red Blood Count 4.21 x10^6/uL (4.30-5.70) Hemoglobin 12.6 g/dL (13.0-17.5) Hematocrit 37.8 % (39.0-53.0) Mean Corpuscular Volume 90 fL (79-100) Mean Corpuscular Hemoglobin 30 pg (25-35) Mean Corpuscular Hemoglobin Concent 33 g/dL (31-37) Red Cell Distribution Width 13.8 % (11.5-14.5) Platelet Count 156 x10^3/uL (140-400) Neutrophils (%) (Auto) 80 % (31-73) Lymphocytes (%) (Auto) 8 % (24-48) Monocytes (%) (Auto) 13 % (0-9) Eosinophils (%) (Auto) 0 % (0-3) Basophils (%) (Auto) 0 % (0-3) Neutrophils # (Auto) 12.1 x10^3uL (1.8-7.7) Lymphocytes # (Auto) 1.1 x10^3/uL (1.0-4.8) Monocytes # (Auto) 1.9 x10^3/uL (0.0-1.1) Eosinophils # (Auto) 0.0 x10^3/uL (0.0-0.7) Basophils # (Auto) 0.0 x10^3/uL (0.0-0.2) Sodium Level 141 mmol/L (136-145) Potassium Level 3.9 mmol/L (3.5-5.1) Chloride Level 108 mmol/L (98-107) Carbon Dioxide Level 23 mmol/L (21-32) Anion Gap 10 (6-14) Blood Urea Nitrogen 22 mg/dL (8-26) Creatinine 1.0 mg/dL (0.7-1.3) Estimated GFR (Cockcroft-Gault) 81.2 Glucose Level 109 mg/dL (70-99) Calcium Level 9.0 mg/dL (8.5-10.1) Review of Systems Review of Systems Patient denies abdominal pain Patient denies nausea/vomiting Assessment and Plan Assessmemt and Plan Problems Medical Problems: (1) Acute renal insufficiency Status: Acute (2) Pneumonia Status: Acute (3) Severe sepsis Status: Acute Assessment: Pneumonia Pleurisy JOSE Tobacco abuse disorder Plan: Stop- IV Ceftriaxone, Start PO Augmentin 875 mg po BID Continue PO Doxycycline 100 mg po BID Start Albuterol MDI 02/28 puff q6H Start Toradol 10 mg po q6H prn Start Medrol Dose Pack as directed Labs PT/OT DVT PPxL Lovenox 40 mg Q24 SQ Daily Discharge disposition: Probable discharge home today Nephrology and Pulmonology consulted Comment Review of Relevant I have reviewed the following items jaleesa (where applicable) has been applied. Labs Laboratory Tests Test 06/28/18 04:15 06/28/18 12:15 06/29/18 03:45 White Blood Count 14.4 x10^3/uL (4.0-11.0) 15.1 x10^3/uL (4.0-11.0) Red Blood Count 4.15 x10^6/uL (4.30-5.70) 4.21 x10^6/uL (4.30-5.70) Hemoglobin 12.7 g/dL (13.0-17.5) 12.6 g/dL (13.0-17.5) Hematocrit 37.3 % (39.0-53.0) 37.8 % (39.0-53.0) Mean Corpuscular Volume 90 fL (79-100) 90 fL (79-100) Mean Corpuscular Hemoglobin 31 pg (25-35) 30 pg (25-35) Mean Corpuscular Hemoglobin Concent 34 g/dL (31-37) 33 g/dL (31-37) Red Cell Distribution Width 13.4 % (11.5-14.5) 13.8 % (11.5-14.5) Platelet Count 126 x10^3/uL (140-400) 156 x10^3/uL (140-400) Neutrophils (%) (Auto) 88 % (31-73) 80 % (31-73) Lymphocytes (%) (Auto) 4 % (24-48) 8 % (24-48) Monocytes (%) (Auto) 8 % (0-9) 13 % (0-9) Eosinophils (%) (Auto) 0 % (0-3) 0 % (0-3) Basophils (%) (Auto) 0 % (0-3) 0 % (0-3) Neutrophils # (Auto) 12.7 x10^3uL (1.8-7.7) 12.1 x10^3uL (1.8-7.7) Lymphocytes # (Auto) 0.5 x10^3/uL (1.0-4.8) 1.1 x10^3/uL (1.0-4.8) Monocytes # (Auto) 1.1 x10^3/uL (0.0-1.1) 1.9 x10^3/uL (0.0-1.1) Eosinophils # (Auto) 0.0 x10^3/uL (0.0-0.7) 0.0 x10^3/uL (0.0-0.7) Basophils # (Auto) 0.0 x10^3/uL (0.0-0.2) 0.0 x10^3/uL (0.0-0.2) Sodium Level 142 mmol/L (136-145) 141 mmol/L (136-145) Potassium Level 4.0 mmol/L (3.5-5.1) 3.9 mmol/L (3.5-5.1) Chloride Level 110 mmol/L (98-107) 108 mmol/L (98-107) Carbon Dioxide Level 22 mmol/L (21-32) 23 mmol/L (21-32) Anion Gap 10 (6-14) 10 (6-14) Blood Urea Nitrogen 23 mg/dL (8-26) 22 mg/dL (8-26) Creatinine 1.1 mg/dL (0.7-1.3) 1.0 mg/dL (0.7-1.3) Estimated GFR (Cockcroft-Gault) 72.7 81.2 BUN/Creatinine Ratio 21 (6-20) Glucose Level 121 mg/dL (70-99) 109 mg/dL (70-99) Calcium Level 8.6 mg/dL (8.5-10.1) 9.0 mg/dL (8.5-10.1) Total Bilirubin 0.5 mg/dL (0.2-1.0) Aspartate Amino Transf (AST/SGOT) 15 U/L (15-37) Alanine Aminotransferase (ALT/SGPT) 22 U/L (16-63) Alkaline Phosphatase 56 U/L (46-116) Total Protein 6.2 g/dL (6.4-8.2) Albumin 2.3 g/dL (3.4-5.0) Albumin/Globulin Ratio 0.6 (1.0-1.7) Urine Random Creatinine 56.6 mg/dL (Not Establ.) Urine Random Total Protein 63.5 mg/dL (Not Establ.) Urine Protein/Creatinine Ratio 1122 mg/g (0-200) Laboratory Tests Test 06/29/18 03:45 White Blood Count 15.1 x10^3/uL (4.0-11.0) Red Blood Count 4.21 x10^6/uL (4.30-5.70) Hemoglobin 12.6 g/dL (13.0-17.5) Hematocrit 37.8 % (39.0-53.0) Mean Corpuscular Volume 90 fL (79-100) Mean Corpuscular Hemoglobin 30 pg (25-35) Mean Corpuscular Hemoglobin Concent 33 g/dL (31-37) Red Cell Distribution Width 13.8 % (11.5-14.5) Platelet Count 156 x10^3/uL (140-400) Neutrophils (%) (Auto) 80 % (31-73) Lymphocytes (%) (Auto) 8 % (24-48) Monocytes (%) (Auto) 13 % (0-9) Eosinophils (%) (Auto) 0 % (0-3) Basophils (%) (Auto) 0 % (0-3) Neutrophils # (Auto) 12.1 x10^3uL (1.8-7.7) Lymphocytes # (Auto) 1.1 x10^3/uL (1.0-4.8) Monocytes # (Auto) 1.9 x10^3/uL (0.0-1.1) Eosinophils # (Auto) 0.0 x10^3/uL (0.0-0.7) Basophils # (Auto) 0.0 x10^3/uL (0.0-0.2) Sodium Level 141 mmol/L (136-145) Potassium Level 3.9 mmol/L (3.5-5.1) Chloride Level 108 mmol/L (98-107) Carbon Dioxide Level 23 mmol/L (21-32) Anion Gap 10 (6-14) Blood Urea Nitrogen 22 mg/dL (8-26) Creatinine 1.0 mg/dL (0.7-1.3) Estimated GFR (Cockcroft-Gault) 81.2 Glucose Level 109 mg/dL (70-99) Calcium Level 9.0 mg/dL (8.5-10.1) Microbiology 06/27/18 Blood Culture - Preliminary, Resulted NO GROWTH AFTER 2 DAYS 06/27/18 Urine Culture - Final, Complete 06/27/18 Urine Culture Result 1 ([facility]) - Final, Complete Medications Current Medications Sodium Chloride 1,000 ml @ 1,000 mls/hr 1X ONCE IV Last administered on 06/27/18at 02:47; Start 06/27/18 at 03:00; Stop 06/27/18 at 03:59; Status DC Ibuprofen (Motrin) 600 mg 1X ONCE PO Last administered on 06/27/18at 02:46; Start 06/27/18 at 03:00; Stop 06/27/18 at 03:01; Status DC Dexamethasone Sodium Phosphate (Decadron) 10 mg 1X ONCE IV Last administered on 06/27/18at 02:46; Start 06/27/18 at 03:00; Stop 06/27/18 at 03:01; Status DC Sodium Chloride 1,000 ml @ 1,000 mls/hr 1X ONCE IV Last administered on 06/27/18at 02:47; Start 06/27/18 at 03:00; Stop 06/27/18 at 03:59; Status DC Iohexol (Omnipaque 350 Mg/ml) 100 ml 1X ONCE IV ; Start 06/27/18 at 03:00; Stop 06/27/18 at 03:01; Status DC Info (CONTRAST GIVEN -- Rx MONITORING) 1 each PRN DAILY PRN MC SEE COMMENTS; Start 06/27/18 at 02:45; Stop 06/28/18 at 13:33; Status DC Piperacillin Sod/ Tazobactam Sod 4.5 gm/Sodium Chloride 100 ml @ 200 mls/hr 1X ONCE IV Last administered on 06/27/18at 03:57; Start 06/27/18 at 04:00; Stop 06/27/18 at 09:21; Status DC Vancomycin HCl 1.75 gm/Sodium Chloride 500 ml @ 250 mls/hr 1X ONCE IV Last administered on 06/27/18at 03:58; Start 06/27/18 at 04:30; Stop 06/27/18 at 09:22; Status DC Sodium Chloride 500 ml @ 500 mls/hr 1X ONCE IV Last administered on 06/27/18at 03:57; Start 06/27/18 at 04:00; Stop 06/27/18 at 04:59; Status DC Vancomycin HCl (Vanco Per Pharmacy) 1 each PRN DAILY PRN MC SEE COMMENTS Last administered on 06/27/18at 05:50; Start 06/27/18 at 03:45; Stop 06/27/18 at 09:22; Status DC Ondansetron HCl (Zofran) 4 mg PRN Q8HRS PRN IV NAUSEA/VOMITING 1ST CHOICE; Start 06/27/18 at 03:45; Stop 06/28/18 at 03:44; Status DC Acetaminophen (Tylenol) 650 mg PRN Q4HRS PRN PO FEVER Last administered on 06/27/18at 21:15; Start 06/27/18 at 03:45; Stop 06/28/18 at 03:44; Status DC Vancomycin HCl 1.25 gm/Sodium Chloride 250 ml @ 167 mls/hr Q24H IV ; Start 06/28/18 at 04:00; Stop 06/28/18 at 04:00; Status DC Vancomycin HCl (Vancomycin Trough Level) 1 each 1X ONCE MC ; Start 06/29/18 at 03:30; Stop 06/29/18 at 03:30; Status DC Albuterol/ Ipratropium (Duoneb) 3 ml RTQID NEB Last administered on 06/29/18at 12:06; Start 06/27/18 at 08:00 Guaifenesin (Robitussin Dm) 10 ml PRN Q4HRS PRN PO COUGH Last administered on 06/28/18at 21:28; Start 06/27/18 at 07:30 Sodium Chloride 1,000 ml @ 100 mls/hr Q10H IV Last administered on 06/29/18 06:22; Start 06/27/18 at 09:00 Guaifenesin/ Codeine Phosphate (Robitussin Ac) 10 ml 1X ONCE PO Last administered on 06/27/18at 10:45; Start 06/27/18 at 09:30; Stop 06/27/18 at 09:31; Status DC Sodium Chloride 1,000 ml @ 1,000 mls/hr 1X ONCE IV Last administered on 06/27/18at 10:30; Start 06/27/18 at 09:30; Stop 06/27/18 at 10:34; Status DC Enoxaparin Sodium (Lovenox Per Pharmacy Prophylaxis Dosing) 1 each PRN DAILY PRN MC SEE COMMENTS; Start 06/27/18 at 09:30 Ceftriaxone Sodium (Rocephin) 1 gm Q24H IVP Last administered on 06/29/18at 09:14; Start 06/27/18 at 09:30 Doxycycline Hyclate (Vibra-Tab) 100 mg BID PO Last administered on 06/29/18 09:13; Start 06/27/18 at 21:00 Doxycycline Hyclate (Vibra-Tab) 100 mg 1X ONCE PO Last administered on 06/27/18at 10:45; Start 06/27/18 at 09:30; Stop 06/27/18 at 09:31; Status DC Enoxaparin Sodium (Lovenox 40mg Syringe) 40 mg Q24H SQ Last administered on 06/29/18at 09:14; Start 06/27/18 at 10:00 Lactobacillus Rhamnosus (Culturelle) 1 cap BID PO Last administered on 06/29/18 09:13; Start 06/27/18 at 21:00 Sodium Chloride 1,000 ml @ 1,000 mls/hr 1X ONCE IV Last administered on 06/27/18at 16:30; Start 06/27/18 at 16:30; Stop 06/27/18 at 19:48; Status DC Sodium Chloride 1,000 ml @ 1,000 mls/hr 1X ONCE IV Last administered on 06/27/18at 18:00; Start 06/27/18 at 18:00; Stop 06/27/18 at 19:48; Status DC Sodium Chloride 1,000 ml @ 1,000 mls/hr 1X ONCE IV Last administered on 06/27/18at 23:00; Start 06/27/18 at 23:00; Stop 06/27/18 at 23:59; Status DC Iohexol (Omnipaque 350 Mg/ml) 100 ml 1X ONCE IV ; Start 06/28/18 at 13:30; Stop 06/28/18 at 13:33; Status DC Info (CONTRAST GIVEN -- Rx MONITORING) 1 each PRN DAILY PRN MC SEE COMMENTS; Start 06/28/18 at 13:45; Stop 06/30/18 at 13:44 Morphine Sulfate (Morphine Sulfate) 2 mg PRN Q2HR PRN IV SEVERE PAIN Last administered on 06/29/18at 06:22; Start 06/28/18 at 14:15 Acetaminophen/ Hydrocodone Bitart (Lortab 5/325) 1 tab PRN Q6HRS PRN PO PAIN Last administered on 06/29/18at 09:14; Start 06/28/18 at 14:30 Active Scripts Active No Active Prescriptions or Reported Medications Vitals/I & O Vital Sign - Last 24 Hours 06/28/18 06/28/18 06/28/18 06/28/18 14:37 15:06 15:37 16:06 Temp 98.2 98.2 Pulse 124 Resp 18 18 18 B/P (MAP) 143/84 (103) Pulse Ox 97 97 99 99 O2 Delivery Room Air Room Air Room Air Room Air 06/28/18 06/28/18 06/28/18 06/28/18 19:25 20:00 21:10 23:11 Temp 98.4 98.5 98.4 98.5 Pulse 115 109 Resp 20 20 B/P (MAP) 134/86 (102) 135/94 (108) Pulse Ox 95 95 93 O2 Delivery Room Air Room Air Room Air Room Air 06/29/18 06/29/18 06/29/18 06/29/18 03:37 06:22 07:20 08:00 Temp 98.7 98.2 98.7 98.2 Pulse 111 104 Resp 20 2 18 B/P (MAP) 143/89 (107) 129/95 (106) Pulse Ox 94 95 O2 Delivery Room Air Room Air Room Air 06/29/18 06/29/18 06/29/18 08:37 11:05 12:07 Temp 98.3 98.3 Pulse 106 Resp 19 B/P (MAP) 137/97 (110) Pulse Ox 95 96 95 O2 Delivery Room Air Room Air Room Air Intake and Output 06/28/18 06/28/18 06/29/18 15:00 23:00 07:00 Intake Total 1180 ml 400 ml Balance 1180 ml 400 ml SCAR HEALY III DO June 29, 2018 13:46
--- NOTE | 2018-06-29 15:15 | NUR ---
Discharge Note: SHEY FINNEGAN [address] [place] [address] Discharge instructions and discharge home medications reviewed with Patient and a copy given. All questions have been answered and understanding verbalized. The following instructions and handouts were given: F/U with PCP within one week. F/U CXR in 4-6 weeks, preferably at [facility]. Discontinued lines and drains: Peripheral IV intact. Patient discharged to home with self care via wheelchair with family member.
--- NOTE | 2018-06-29 19:55 | DS ---
DATE OF DISCHARGE: 06/29/2018 ADMISSION DIAGNOSES: Pneumonia, probable chronic obstructive pulmonary disease, bronchitis, renal insufficiency, sepsis. DISCHARGE DIAGNOSES: Resolving pneumonia and sepsis. HOSPITAL COURSE: The patient is a pleasant 42-year-old male who presented with sepsis, pneumonia, COPD and bronchitis and renal insufficiency. He was admitted. We gave him IV steroids, breathing treatments, oxygen, antibiotics and fluids. His creatinine is back down to 1. Today, he feels better. PHYSICAL EXAMINATION: I saw him and examined him. CARDIOVASCULAR: His heart tones were normal. LUNGS: Clear, although he does have a cough still. We plan to discharge to home with close outpatient followup. DISPOSITION: Home. ACTIVITY: As tolerated. DIET: Low sodium. MEDICATIONS: I gave him prescriptions for Medrol Dosepak and antibiotics and albuterol. TOTAL TIME: 35 minutes. SCAR HEALY DO DR: CAL/adri JOB#: [id number] / [id number]
== END 2018-06-29 15:20 | disposition home or self-care (01) | DRG 871 ==
LOC: EDBD → ER 00:20 → 6 SOUTH 03:30
PROVIDERS: ADMIT Family Medicine; ATTEND Family Medicine
DX: A41.9 Sepsis, unspecified organism (principal); J18.9 Pneumonia, unspecified organism; J44.0 Chronic obstructive pulmonary disease with (acute) lower respiratory infection; J90 Pleural effusion, not elsewhere classified; N17.9 Acute kidney failure, unspecified; M19.90 Unspecified osteoarthritis, unspecified site; E66.9 Obesity, unspecified; F17.200 Nicotine dependence, unspecified, uncomplicated; R65.20 Severe sepsis without septic shock; Z68.32 Body mass index [BMI] 32.0-32.9, adult
CPT/HCPCS: 36415; 71046; 71250; 76770; 80048; 80053; 81001; 82553; 82570; 83605; 83735; 83880; 84156; 84484; 85007; 85025; 85379; 87040; 87086; 87804; 93005; 94640; 94760; 96361; 96374; J0696; J1100; J1650; J2270; J2543; J3370; J7030; J7040; J7620; 99291-25